=== PATIENT | male | born 1955 | race Caucasian/White ===

== ENCOUNTER 2018-12-03 15:45 | Inpatient (IN) | payer OTHER ==
[2018-12-03] MEDS ORDERED: NS 500 ML IV ONE (15:50)
--- NOTE | 2018-12-03 15:50 | EDPHY ---
H & P Time Seen by Provider: 12/03/18 15:49 HPI/ROS: CHIEF COMPLAINT: Slurred speech, right upper extremity weakness HISTORY OF PRESENT ILLNESS: The patient is a 63-year-old male who stated that he started to feel "funny" at 7:00 a.m.. The at noon he tried to get up and he fell. He noticed right-sided weakness. Patient had difficulty getting to the phone and was not unable to activate EMS until . EMS activated the patient has a stroke alert. The custodial was 119. REVIEW OF SYSTEMS: 10 systems were reveiwed and are negative with the exception of the elements mentioned in the history of present illness. Physical Exam: EMS vitals noted GENERAL: No acute distress, alert. Protecting airway HEENT: Eyes normal to inspection, normal pharynx, no signs of dehydration. NECK: Normal, supple. No spinal tenderness RESPIRATORY: Clear to auscultation bilaterally, no rales, rhonchi or wheezing. CVS: Regular rate and rhythm, no rubs, murmurs, or gallops. ABDOMEN: Soft, nontender, nondistended, no organomegaly. BACK: Normal to inspection, no CVA tenderness. SKIN: Normal color, no rash, warm, dry. No pallor. EXTREMITIES: No pedal edema, no calf tenderness, no Homans sign or cords, no joint swelling. NEURO/PSYCH: Alert and oriented, normal mood and affect, slurred speech, right upper extremity weakness. No obvious cranial nerve deficit. Constitutional: Initial Vital Signs Temperature (C) 36.7 C 12/03/18 16:10 Heart Rate 110 H 12/03/18 16:10 Respiratory Rate 22 H 12/03/18 16:10 Blood Pressure 151/96 H 12/03/18 16:10 O2 Sat (%) 93 12/03/18 16:10 O2 Delivery Mode Nasal Cannula O2 (L/minute) 2 Allergies/Adverse Reactions: Penicillins Allergy (Verified 12/03/18 16:17) Home Medications: Medication Instructions Recorded Metoprolol Tartrate 12/03/18 Medical Decision Making - Diagnostics Imaging Results: Imaging Impressions Chest X-Ray 12/03/18 15:50 Impression: Clear lungs. Negative portable chest. Head CT 12/03/18 15:51 Impression: Negative. No acute intracranial hemorrhage or evidence of acute cortical ischemia. Findings discussed with Emergency Department physician, Dr. Saida Akins on December 03, 2018 at 1610 hours. Head CTA 12/03/18 15:51 Impression: 1. Normal intracranial arterial circulation. No evidence of embolic disease or aneurysm. 2. Patent venous system. CT Neck Angiogram: Neck Angiogram: The cervicothoracic aorta gives rise to normal four-vessel neck anatomy. Origin of the carotid and vertebral arteries are widely patent. Minimal ostial plaque is present at bilateral vertebral artery origins. Calcified plaque in bilateral carotid bulbs results in less than 10% narrowing on the right, and less than 40% narrowing on the left. No ulcerated plaque, flow -limiting stenosis, dissection, or occlusion. Bilateral vertebral arteries are patent and give rise to widely patent basilar artery. Neck: The lung apices are clear, except for mild diffuse peribronchial thickening. No neck mass or lymphadenopathy. Moderate to severe degenerative disk disease is worse at the C4-C5, C5-C6 and C6-C7 levels. No fracture or bone lesion. Impression: 1. No occlusion, dissection, or flow-limiting stenosis. 2. Calcified bilateral carotid plaque results in minimal right and mild left stenosis. Findings discussed with Emergency Department physician, Dr. Saida Akins on December 03, 2018 at 1616 hours. ED Course/Re-evaluation: 1550: I met EMS on arrival. I took report from the nutrition club ambassador. The patient went directly down to CT imaging. Because the patient's symptoms started at 7: 00 a.m., he is in the 12 hr window. Because of the timing, CT without and CT angio head and neck were ordered. CBC and chemistry unremarkable. 16 10: I discussed the case with Dr. Verma. Negative noncontrast head CT 16 17: I discussed case with Dr. Verma. No occluding lesion on CT angio of head and neck. 16 20: I discussed the case with [facility], Dr. Fonseca. We discussed the findings thus far. At this time he is not feel the patient needs transfer. The patient is not a tPA candidate based on the onset of his symptoms at 7:00 a.m.. There is no obstructing lesion on CT angiogram. Differential Diagnosis: My differential includes but is not limited to ischemic CVA, hemorrhagic CVA, dissection, aneurysm, electrolyte abnormality, sugar abnormality, dysrhythmia, ACS - Data Points Laboratory Results: Laboratory Results 12/03/18 15:52 12/03/18 15:52 12/03/18 12/03/18 12/03/18 15:57 15:54 15:52 WBC RBC Hgb POC Hgb 17.0 gm/dL gm/dL (13.7-17.5) Hct POC Hct 50 % % (40-51) MCV MCH MCHC RDW Plt Count MPV Neut % (Auto) Lymph % (Auto) [place] % (Auto) Eos % (Auto) Baso % (Auto) Nucleat RBC Rel Count Absolute Neuts (auto) Absolute Lymphs (auto) Absolute Monos (auto) Absolute Eos (auto) Absolute Basos (auto) Absolute Nucleated RBC Immature Gran % Immature Gran # PT INR APTT POC Sodium 139 mEq/L mEq/L (135-145) Sodium 137 mEq/L mEq/L (135-145) POC Potassium 4.3 mEq/L mEq/L (3.3-5.0) Potassium 4.6 mEq/L mEq/L (3.5-5.2) POC Chloride 101 mEq/L mEq/L (97-110) Chloride 99 mEq/L mEq/L (97-110) Carbon Dioxide 19 mEq/l L mEq/l (22-31) POC Total CO2 22 mEq/L mEq/L (22-31) Anion Gap 19 mEq/L H mEq/L (6-14) POC BUN 23 mg/dL mg/dL (7-23) BUN 22 mg/dL mg/dL (7-23) Creatinine 0.6 mg/dL L mg/dL (0.7-1.3) POC Creatinine 0.6 mg/dL L mg/dL (0.7-1.3) Estimated GFR > 60 Glucose 126 mg/dL H mg/dL (70-100) POC Glucose 131 mg/dL H mg/dL (70-100) Calcium 9.8 mg/dL mg/dL (8.5-10.4) POC Troponin I 0.03 ng/mL ng/mL (0.00-0.08) Specimen Hemolysis Ethyl Alcohol 12/03/18 12/03/18 12/03/18 15:52 15:52 15:50 WBC 7.46 10^3/uL 10^3/uL (3.80-9.50) RBC 5.02 10^6/uL 10^6/uL (4.40-6.38) Hgb 17.0 g/dL g/dL (13.7-17.5) POC Hgb Hct 49.3 % % (40.0-51.0) POC Hct MCV 98.2 fL fL (81.5-99.8) MCH 33.9 pg pg (27.9-34.1) MCHC 34.5 g/dL g/dL (32.4-36.7) RDW 12.6 % % (11.5-15.2) Plt Count 267 10^3/uL 10^3/uL (150-400) MPV 8.6 fL L fL (8.7-11.7) Neut % (Auto) 54.6 % % (39.3-74.2) Lymph % (Auto) 40.3 % % (15.0-45.0) [place] % (Auto) 3.5 % L % (4.5-13.0) Eos % (Auto) 0.7 % % (0.6-7.6) Baso % (Auto) 0.8 % % (0.3-1.7) Nucleat RBC Rel Count 0.0 % % (0.0-0.2) Absolute Neuts (auto) 4.07 10^3/uL 10^3/uL (1.70-6.50) Absolute Lymphs (auto) 3.01 10^3/uL H 10^3/uL (1.00-3.00) Absolute Monos (auto) 0.26 10^3/uL L 10^3/uL (0.30-0.80) Absolute Eos (auto) 0.05 10^3/uL 10^3/uL (0.03-0.40) Absolute Basos (auto) 0.06 10^3/uL 10^3/uL (0.02-0.10) Absolute Nucleated RBC 0.00 10^3/uL 10^3/uL (0-0.01) Immature Gran % 0.1 % % (0.0-1.1) Immature Gran # 0.01 10^3/uL 10^3/uL (0.00-0.10) PT 12.6 SEC SEC (12.0-15.0) INR 0.98 (0.83-1.16) APTT 24.9 SEC SEC (23.0-38.0) POC Sodium Sodium POC Potassium Potassium POC Chloride Chloride Carbon Dioxide POC Total CO2 Anion Gap POC BUN BUN Creatinine POC Creatinine Estimated GFR Glucose POC Glucose Calcium POC Troponin I Specimen Hemolysis 410 Ethyl Alcohol < 10 mg/dL mg/dL (0-10) Medications Given: Discontinued Medications Sodium Chloride (Ns) 500 mls @ 500 mls/hr IV EDNOW ONE PRN Reason: Protocol Stop: 12/03/18 16:49 Last Admin: 12/03/18 16:39 Dose: 500 mls Point of Care Test Results: Chemistry 12/03/18 12/03/18 15:57 15:54 POC Sodium 139 mEq/L mEq/L (135-145) POC Potassium 4.3 mEq/L mEq/L (3.3-5.0) POC Chloride 101 mEq/L mEq/L (97-110) POC Total CO2 22 mEq/L mEq/L (22-31) POC BUN 23 mg/dL mg/dL (7-23) POC Creatinine 0.6 mg/dL L mg/dL (0.7-1.3) POC Glucose 131 mg/dL H mg/dL (70-100) POC Troponin I 0.03 ng/mL ng/mL (0.00-0.08) ISTAT H&H 12/03/18 15:54 POC Hgb 17.0 gm/dL gm/dL (13.7-17.5) POC Hct 50 % % (40-51) Departure - Departure Disposition: [facility] Inpatient Acute Clinical Impression: Aphasic disturbance, Weakness Condition: Good Referrals: Patient,NotPresent [Primary Care Provider] - As per Instructions
[2018-12-03] MEDS ORDERED: IOPAMIDOL (ISOVUE 370) 100 ML BTL IV ONE (15:53)
[2018-12-03 16:05] LABS: PLATELET COUNT 267 10^3/uL (150-400)
[2018-12-03 16:17] LABS: INR 0.98 (0.83-1.16); PROTIME(PATIENT) 12.6 SEC (12.0-15.0)
--- NOTE | 2018-12-03 18:32 | ASMTCMCOM ---
CM Note CM Note Notes: Reviewed chart. Pt presented to the Emergency Department via EMS with aphasia and right sided weakness - stroke alert. History includes Hepatitis C, back injury, HTN and flat foot. Pt is single and lives alone in [place]. Met with pt to assist in locating emergency contacts. Pt requested CM contact Srinivasan Bower, pt's neighbor. Srinivasan located via online white pages. Call placed to Olu Bower , [address] [facility]. Srinivasan was aware the pt had contacted EMS and was transported to [facility]. Srinivasan has been Scot's neighbor for quite some time, but states that "Scot is very reclusive, private and doesn't share much." Srinivasan reports "Scot travels to [place], [place] a couple of times per year," but Srinivasan is unclear what he does when he is there. Srinivasan states that he and his noticed the pt "had increased weakness and difficulty with speech back in July when he returned from a trip to [facility]." Srinivasan and Beatriz will come see the pt tomorrow in the hospital. Update provided to Scot. Scot requested CM contact Saeed Minoo , his friend from [place]. Call placed to Saeed. Saeed reports knowing the pt for many years. Saeed states the pt does not have any living family - the pt's brother in 2012. Saeed reports the pt has Hepatitis C, flat foot secondary to a back injury in the and HTN. Saeed states the pt last visited [place] the end of June, early July 2018. At that time Saeed noted the pt had slurred, slow speech and increased weakness. 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 Saeed will keep in touch with the pt. Main hospital number provided. Update provided to Scot. Pt to be admitted for further evaluation and treatment. Discharge needs remain unclear at this time. Will await PT/OT evals. CM will continue to follow. Discharge Plan: To be determined Date Signed: 12/03/2018 06:32 PM Electronically Signed By:Kaleigh Aguayo RN
[2018-12-03] MEDS ORDERED: ONDANSETRON 4 MG/2 ML VIAL IVP PRN (19:12)
[2018-12-03] MEDS ORDERED: ONDANSETRON DISINTEGRATING 4 MG TAB PO PRN (19:12)
[2018-12-03] MEDS ORDERED: ACETAMINOPHEN 325 MG TAB PO PRN (19:12)
--- NOTE | 2018-12-03 20:16 | GHP ---
[f rep st] HISTORY AND PHYSICAL DATE OF ADMISSION: 12/03/2018 Mr. Hager is a 63-year-old gentleman with not much past medical history and, it sounds like, not a lot of medical care, who was brought into the emergency department as a stroke alert today. He states rebeca yan felt funny around 7 a.m. He tried to get up and he fell. He had some right-sided weakness, and th en it took him a while to get to the phone, and then ultimately he was able to get to the phone aroun d 2 p.m. and came in at that point in time. He had a stroke evaluation showing no intracranial hemor rhage or other significant issue. A noncontrast CT and head and neck CTA showed no significant vascu lar disease. When I speak to the patient he is dysarthric, but his speech is fluent and he is able to repeat objec ts, name a stethoscope, etc. He said his voice has been like that for a number of months. He does n ot drink alcohol. He does not appear intoxicated. He does not have difficulty swallowing. He state s he is retired. He spends much of his time at home. It sounds like his neighbors said that he has been having on-and-off issues with speech since July when they were contacted by some emergency d epartment personnel. The patient has no complaints such as shortness of breath, nausea, vomiting, diarrhea. He has thrush on his tongue. It is unsure how long that has been there. The patient is alert and oriented and conversant. I cannot understand what he used to do for work, b ut he does not appear concerned that he is in the hospital and does not ask any questions. REVIEW OF SYSTEMS: Complete 10-point review of systems is conducted and negative except as noted in the HPI. PAST MEDICAL HISTORY: It sounds like hypertension. ALLERGIES: Penicillin. HOME MEDICATIONS: Metoprolol and enteric-coated aspirin. SOCIAL HISTORY: He is retired. Lives in [address] [place] [address]. Denies tobacco or alcohol. FAMILY HISTORY: Reviewed and unremarkable. PHYSICAL EXAMINATION: PRESENTING VITALS: Temperature 36.7, pulse 110, blood pressure 151/96, breath ing times a minute, 93% on room air. GENERAL: In no acute distress. HEENT: Sclerae ani cteric. Oropharynx clear. Mucous membranes are moist. NECK: Supple without lymphadenopathy or JVD . LUNGS: Clear to auscultation bilaterally. HEART: S1, S2. ABDOMEN: Soft, nontender, nondistend ed. LOWER EXTREMITIES: Without edema. CALVES: Nontender. SKIN: Without rash. NEUROLOGIC: He i s overall weak, but there is no right-sided weakness as described by some people. His speech is dysa rthric but fluent. He has no real tremor that I can tell. He does not have parkinsonian features. LABORATORIES: White count 7.5, hematocrit 49, platelets are 267,000, coags normal. Sodium 137, pota ssium 4.6, chloride 99, bicarb 19, BUN 22, creatinine 0.6, glucose 126. Troponin 0.03, which is nega tive in our system here. Ethanol level is negative. Head and neck CTA shows no significant vascular compromise with intact intracranial circulation and a 40% narrowing in the left carotid bulb. Other tucker really unremarkable with no flow-limiting stenosis anywhere. He has a patent venous system. Non contrast head CT shows no atrophy, no midline shift, etc. Chest x-ray shows clear lungs. Chest x-ra y interpreted by me. EKG interpreted by me shows sinus tach at 109 with normal axis and intervals an d no ST or T-wave changes. I discussed the case with Dr. Saida Akins. ASSESSMENT/PLAN: A 63-year-old gentleman with fall, dysarthria, tachycardia. 1. Dysarthria. This is kind of uncertain as to what is causing this. He does have thrush which I n ote. I will check an MRI to evaluate for old stroke. I will have speech therapy see him. Neck CT d id not show any mass. He had a normal exam. 2. Thrush. Check HIV. Will check a cortisol level. 3. Sinus tachycardia. The patient takes a beta brandi. Perhaps he stopped taking this. Echocardio gram has been ordered. We will repeat a troponin. 4. Encephalopathy. The patient is modestly confused. He has a normal chest x-ray. We will send a urinalysis and urine cultures and check blood cultures. 5. Inferior visual field cut. I will go ahead and check an MRI as mentioned. I will do this with sara briones. 6. Disposition: Inpatient status. /[id number]/MODL
[2018-12-03] MEDS ORDERED: GADOBUTROL 10 ML VIAL IVP ONE (21:14)
--- NOTE | 2018-12-03 23:07 | CPEKG ---
Test Reason : OPEN Blood Pressure : / mmHG Vent. Rate : 109 BPM Atrial Rate : 109 BPM P-R Int : 179 ms QRS Dur : 084 ms QT Int : 367 ms P-R-T Axes : 041 043 042 degrees QTc Int : 495 ms Sinus tachycardia Left atrial enlargement Borderline prolonged QT interval Confirmed by Saida Akins ([id number]) on 12/03/2018 11:06:56 PM Referred By: Saida Akins Confirmed By:Saida Akins
[2018-12-04] MEDS: NS 1,000 ML IV SCH ×2 (00:43→13:14)
[2018-12-04 03:37] LABS: HIV TYPE 1 AND 2 NEGATIVE (NEGATIVE)
--- NOTE | 2018-12-04 07:55 | PDMN ---
Medical Necessity Medical necessity: Pt meets inpt criteria per MD order and Neurology GRG. 63 y/ o s/p fall presented to ED w/dysarthria, confusion, and tachycardia. Neuor consult pending, SP/PT/OT evals and ECHO pending, persistent tachycardia through night, anticipate>2MN for further workup of above.
--- NOTE | 2018-12-04 09:43 | NEUROPROG ---
Assessment: [id number] - Neurology Consult: - CC: Weakness, speech difficulties - HPI: 12/04/18: Pt had been noting speech problems intermittently since July 2018 but otherwise no significant medical problems. On 12/03/18 at 7 am he noted right sided weakness that persisted per patient until 2 pm when he came to the [facility] for evaluation. At that time he was only noted to have dysarthric speech which he indicated has been present since July 2018 and he was mildly confused but not focally weak. Pt also had an oral thrush infection which may be affecting his speech. Head CT, CTA head/neck, and brain MRI wwo all unremarkable. Neurologic exam showed severe dysarthria, mild cognitive problems (thought it was 2018, problems with motor planning), generalized intermittent weakness, and possible right proximal focal weakness. Given length of symptoms of weakness (hours) in setting of normal brain MRI makes TIA or stroke unlikely. 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 Treatment is likely symptomatic. I will check labs for any myasthenia and have pt f/u in neurology clinic in 1-2 weeks to obtain EMG/NCS looking for any denervation in the tongue. Agree with PT/OT/Speech eval. - PMHx: HTN? - Home Meds: aspirin, metoprolol - SHx: retired FHx: NC - ROS: Pt denied acute fever, total vision loss, active severe chest pain, respiratory failure, total body severe rash, total bowel/bladder incontinence, psychosis, active seizures, or active bleeding - O: VS reviewed General: Alert Eyes: Fundoscopic exam not able to visualize optic disks CV: Heart RRR, no murmur, no carotid bruit Lungs: Clear to auscultation bilaterally, no rhonchi or rales Neuro: - Mental: . Oriented x person/place but not date . concentration appears normal . speech fluency/comprehension difficult to test due to severe dysarthria but comprehension seems intact . memory appears normal . fund of knowledge appear intact - Cranial Nerves: . II: PERRL, VFFTC . III/IV/: EOMI, no nystagmus, normal smooth pursuits, no Ptosis . V: facial sensation intact to LT . VII: face symmetric to eye closure and smile . VIII: hearing intact to conversation . IX/X: uvula raises symmetrically . XI: SCM 5/5 B/L strength . XII: tongue protrudes midline w/nl strength - Motor: . Tone: normal tone in all 4 extremity . Strength: proximal right arm weakness, intermittent generalized weakness - Reflexes: B/L bic/BR/patella 2/4 - Sensory: all 4 extremity intact to light touch - Coord: some problems following alternating hand movements seems concerning for motor planning - Gait: deferred - Labs: 12/03/18- CBC wnl, coags wnl, Chem Cr 0.6L Gluc 131H, - Rads: 12/03/18- Head CT wo: no acute bleed (I personally visualized the images on ) 12/03/18- Head/neck CTA: no flow limiting stenosis, no significant findings 12/03/18- Brain MRI wwo: no acute stroke, minimal white matter disease - Assessment: 1. Speech Disturbance, generalized weakness: concern for underlying neurodegenerative process such as bulbar supranuclear palsy - Plan: - Labs: myasthenic panel, TSH, B12 - Agree with PT/OT/Speech - F/U in neurology clinic in 1-2 weeks for EMG/NCS with Dr. Bernal to check for any denervation in tongue Objective: Vital Signs Temp Pulse Resp BP Pulse Ox 36.6 C 103 H 18 148/81 H 96 12/04/18 08:00 12/04/18 08:00 12/04/18 08:00 12/04/18 08:00 12/04/18 08:00 12/03/18 12/04/18 12/05/18 05:59 05:59 05:59 Intake Total 500 Output Total 600 Balance -100 PT 12.6 SEC (12.0-15.0) 12/03/18 15:52 INR 0.98 (0.83-1.16) 12/03/18 15:52 Allergies/Adverse Reactions: Penicillins Allergy (Verified 12/03/18 16:17)
[2018-12-04] MEDS: ENOXAPARIN 40 MG/0.4 ML SYR SC SCH (11:29)
[2018-12-04] MEDS: ASPIRIN EC 81 MG TAB PO SCH (11:30)
[2018-12-04] MEDS: METOPROLOL SUCCINATE XR 50 MG TAB PO SCH (11:31)
--- NOTE | 2018-12-04 16:19 | ECHO ---
[email or web address] [address] [address] Main: [phone] Echocardiography Examination Transthoracic Name: SHERMAN CORNEJO MR#: [id number] Study Date: 12/04/2018 Study Time: 03:31 PM Date of : 1955 Age: 63 year(s) Height: 180.3 cm (71 in.) Weight: 76.66 kg (169 lb.) BSA: 1.96 m2 Gender: Male Examination: Echo Contrast: Image Quality: Adequate Rhythm: Heart Rate: 102 bpm BP: 129 mmHg/70 mmHg Indication: ischemic stroke Procedure Staff Referring Physician: Anesthesiology Faculty: Katie Byers [facility] Reading Physician: Marlon Soria MD Requesting Provider: Indication: ischemic stroke Measurements Chambers AV/MV Label Value Normal Value Label Value Normal Value IVSd, 2D 1.1 cm (0.6cm - 1.1cm) AV PGmax 10 mmHg LVDd, 2D 4.2 cm (4.2cm - 5.9cm) AV Vmax 1.58 m/s LVDs, 2D 2.6 cm (2.1cm - 4cm) JESSICA (continuity eq. 2.2 cm2 LVEF, 2D 66 % (54% - 74%) Vmax) LVEF, BP 70 % (55% - 70%) MV A Vmax 0.96 m/s LVEF, MOD2 71 % (55% - 70%) MV DT 143 ms LVEF, MOD4 67 % (55% - 70%) MV E' lateral 0.08 m/s LVOT PGmax 6 mmHg MV E' mean 0.07 m/s LVOT Vmax 1.22 m/s (0.7m/s - 1.1m/s) MV E' septal 0.06 m/s LVOTd 1.9 cm (1.9cm - 2.1cm) MV E Vmax 0.66 m/s LVPWd, 2D 1.1 cm (0.6cm - 1cm) MV E/A 0.69 RVDd, 2D 3.2 cm (1.9cm - 3.8cm) MV E/E' lateral 8 TAPSE 2.2 cm MV E/E' mean 9.43 LA Area, A2C 10.2 cm2 (0cm2 - 20cm2) MV E/E' septal 11 (0.45 - 1.25) LA Volume, A2C 19 ml (18ml - 58ml) TV/PV LA Volume, A4C 49 ml (16ml - 34ml) Label Value Normal Value LA Volume, BP 33 ml (18ml - 58ml) PV PGmax 5 mmHg LAD Index, 2D 1.63 cm/m2 PV Vmax, Caliper 1.12 m/s (0.6m/s - 0.9m/s) LADs, 2D 3.2 cm (3cm - 4cm) LAESV index, MOD4 25 ml/m2 Patient: SHERMAN CORNEJO Study Date: 12/04/2018 Page 1 of 3 03:31 PM RA Area 13 cm2 Additional Vessels Label Value Normal Value AoAsc 2.9 cm AoRoot, 2D 3.2 cm (1.4cm - 2.6cm) Conclusions Left Ventricle: CONCLUSIONS:1)Normal to hyperdynamic LV systolic function with a LVEF of 70% and normal wall motions.2)Mild concentric LVH with mild diastolic dysfunction noted.3)Trivial TR noted. Unable to assess accurate PA pressures.4)No cardiac thrombus seen.5)No PFO or ASD noted by color Doppler. Findings Left Ventricle: Left ventricle is normal in size. CONCLUSIONS: 1)Normal to hyperdynamic LV systolic function with a LVEF of 70% and normal wall motions. 2)Mild concentric LVH with mild diastolic dysfunction noted. 3)Trivial TR noted. Unable to assess accurate PA pressures. 4)No cardiac thrombus seen. 5)No PFO or ASD noted by color Doppler. The ejection fraction, measured by Simpsons method, is 70 %. There is mild concentric left ventricular hypertrophy. There are no regional wall motion abnormalities. Grade I Diastolic Dysfunction. Right Ventricle: Normal size right ventricle. Right ventricular wall thickness is normal. Right ventricular systolic function is normal. Left Atrium: The left atrium is normal in size. IAS: Normal appearing atrial septum. Right Atrium: The right atrium is normal in size. Mitral Valve: Normal . No mitral regurgitation. No mitral valve stenosis. There is mild mitral annular calcification. Aortic Valve: The aortic valve is structurally normal and trileaflet. No aortic valve regurgitation. There is no aortic stenosis. Tricuspid Valve: Tricuspid valve leaflets are normal in appearance and function. Trivial tricuspid regurgitation. No tricuspid valve stenosis. Pulmonary artery pressure cannot be assessed due to inadequate TR signal. Pulmonic Valve: Pulmonic leaflets exhibit normal cuspal separation. Trivial pulmonic valve regurgitation is present. Aorta: The aorta is normal. The aortic root size in 2D measures 3.2 cm. The aortic root exhibits normal size. The ascending aorta measures 2.9 cm. Ascending aorta is normal in size. Aorta Measurements AoRoot, 2D is 3.2 cm. IVC: The inferior vena cava is normal in size and course. Pericardium: A pericardial fat pad is present. A trivial pericardial effusion was identified. Exam Details Patient: SHERMAN CORNEJO Study Date: 12/04/2018 Page 2 of 3 03:31 PM Procedure Ordered: Echo Procedure Status: Routine study Image Quality: Adequate Facility Location: Cardiac Echo 1 (No Signature Object) Patient: SHERMAN CORNEJO Study Date: 12/04/2018 Page 3 of 3 03:31 PM [id number]
--- NOTE | 2018-12-04 16:50 | HOSPPROG ---
Hospitalist Progress Note Assessment/Plan: 63 yo M w dysphagia, thrush, generalized weakness and possible visual field cut. 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 mri largely neg. seen by neuro Objective: Vital Signs Temp Pulse Resp BP Pulse Ox 36.6 C 92 18 129/70 H 95 12/04/18 11:24 12/04/18 16:00 12/04/18 11:24 12/04/18 11:24 12/04/18 11:24 12/03/18 12/04/18 12/05/18 05:59 05:59 05:59 Intake Total 500 Output Total 600 Balance -100 PT 12.6 SEC (12.0-15.0) 12/03/18 15:52 INR 0.98 (0.83-1.16) 12/03/18 15:52 - Physical Exam Constitutional: no apparent distress, appears nourished Eyes: PERRL, anicteric sclera Ears, Nose, Mouth, Throat: other (thrush) Cardiovascular: regular rate and rhythym, no murmur, rub, or gallop Respiratory: no respiratory distress, no rales or rhonchi Gastrointestinal: normoactive bowel sounds, soft, non-tender abdomen Genitourinary: No parker in urethra Skin: warm, normal color Musculoskeletal: No full muscle strength Neurologic: AAOx3, other Psychiatric: interacting appropriately ICD10 Worksheet Patient Problems: Problems Problem Status Onset Aphasic disturbance Acute Weakness Acute
[2018-12-04] MEDS ORDERED: predniSONE 20 MG TAB PO SCH (17:00)
[2018-12-04] MEDS: methylPREDNISolone SOD SUCC 125 MG/2 ML VIAL IVP SCH (18:06)
[2018-12-04] MEDS: NYSTATIN SUSP 500000 UNIT/5 ML UD LIQ PO SCH (22:57)
[2018-12-05] MEDS: NS 1,000 ML IV SCH (01:40)
[2018-12-05] MEDS: NYSTATIN SUSP 500000 UNIT/5 ML UD LIQ PO SCH ×4 (05:00→20:48)
--- NOTE | 2018-12-05 09:18 | NEUROPROG ---
Assessment: [id number] - Neurology Consult: - CC: F/U for dysarthria - Narrative Summary: 12/04/18: Pt had been noting speech problems intermittently since July 2018 but otherwise no significant medical problems. On 12/03/18 at 7 am he noted right sided weakness that persisted per patient until 2 pm when he came to the [facility] ER for evaluation. At that time he was only noted to have dysarthric speech which he indicated has been present since July 2018 and he was mildly confused but not focally weak. Pt also had an oral thrush infection which may be affecting his speech. Head CT, CTA head/neck, and brain MRI wwo all unremarkable. Neurologic exam showed severe dysarthria, mild cognitive problems (thought it was 2018, problems with motor planning), generalized intermittent weakness, and possible right proximal focal weakness. Given length of symptoms of weakness (hours) in setting of normal brain MRI makes TIA or stroke unlikely. 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 Treatment is likely symptomatic. I will check labs for any myasthenia and have pt f/u in neurology clinic in 1-2 weeks to obtain EMG/NCS looking for any denervation in the tongue. Agree with PT/OT/Speech eval. - HPI: F/U 12/05/18. Given how severely affected the patient is I feel it is reasonable to give a 7 day trial of prednisone 80 mg qd to see if this improves his symptoms (possibly atypical myasthenia gravis?). However, if no clear improvement after 7 days then I will stop prednisone. No clinical change in patient today. B12/TSH unremarkable. - PMHx: HTN? - Home Meds: aspirin, metoprolol - SHx: retired FHx: NC - ROS: Pt denied acute fever, total vision loss, active severe chest pain, respiratory failure, total body severe rash, total bowel/bladder incontinence, psychosis, active seizures, or active bleeding - Labs: 12/03/18- CBC wnl, coags wnl, Chem Cr 0.6L Gluc 131H, HIV 1 /2 negative 12/04/18- TSH wnl, B12 438 - Rads: 12/03/18- Head CT wo: no acute bleed 12/03/18- Head/neck CTA: no flow limiting stenosis, no significant findings 12/03/18- Brain MRI wwo: no acute stroke, minimal white matter disease - Assessment: 1. Speech Disturbance, generalized weakness: concern for underlying neurodegenerative process such as progressive bulbar supranuclear palsy. Will give empiric trial of prednisone 80 mg qd x 7 days (began on 12/04/18) - Plan: - Labs: myasthenic panel (pending) - empiric trial of prednisone 80 mg qd x 7 days (began on 12/04/18), if no clear improvement in 7 days then would stop steroids - Agree with PT/OT/Speech - F/U in neurology clinic in 1-2 weeks for EMG/NCS with Dr. Bernal to check for any denervation in tongue Objective: Vital Signs Temp Pulse Resp BP Pulse Ox 36.8 C 105 H 20 153/91 H 93 12/05/18 08:00 12/05/18 08:00 12/05/18 08:00 12/05/18 08:00 12/05/18 08:00 12/04/18 12/05/18 12/06/18 05:59 05:59 05:59 Intake Total 500 900 100 Output Total 600 900 275 Balance -100 0 -175 PT 12.6 SEC (12.0-15.0) 12/03/18 15:52 INR 0.98 (0.83-1.16) 12/03/18 15:52 Allergies/Adverse Reactions: Penicillins Allergy (Verified 12/03/18 16:17)
[2018-12-05] MEDS: METOPROLOL SUCCINATE XR 50 MG TAB PO SCH (09:34)
[2018-12-05] MEDS: ASPIRIN EC 81 MG TAB PO SCH (09:34)
[2018-12-05] MEDS: methylPREDNISolone SOD SUCC 125 MG/2 ML VIAL IVP SCH (09:35)
[2018-12-05] MEDS: ENOXAPARIN 40 MG/0.4 ML SYR SC SCH (09:35)
[2018-12-05] MEDS ORDERED: GADOBUTROL 10 ML VIAL IVP ONE ×2 (13:21→13:48)
--- NOTE | 2018-12-05 13:41 | HOSPPROG ---
Hospitalist Progress Note Assessment/Plan: 63 yo M w dysphagia, thrush, generalized weakness and possible visual field cut. 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 no change w addition of steroids Objective: Vital Signs Temp Pulse Resp BP Pulse Ox 36.8 C 87 21 H 162/93 H 92 12/05/18 11:43 12/05/18 11:43 12/05/18 11:43 12/05/18 11:43 12/05/18 11:43 12/04/18 12/05/18 12/06/18 05:59 05:59 05:59 Intake Total 500 900 100 Output Total 600 900 525 Balance -100 0 -425 PT 12.6 SEC (12.0-15.0) 12/03/18 15:52 INR 0.98 (0.83-1.16) 12/03/18 15:52 - Physical Exam Constitutional: no apparent distress, appears nourished Eyes: PERRL, anicteric sclera Ears, Nose, Mouth, Throat: moist mucous membranes, hearing normal Cardiovascular: regular rate and rhythym, no murmur, rub, or gallop Respiratory: no respiratory distress, no rales or rhonchi Gastrointestinal: normoactive bowel sounds, soft, non-tender abdomen Genitourinary: no bladder fullness, No parker in urethra Skin: warm, no induration Musculoskeletal: No full muscle strength Neurologic: No AAOx3 ICD10 Worksheet Patient Problems: Problems Problem Status Onset Aphasic disturbance Acute Weakness Acute
[2018-12-06] MEDS: NYSTATIN SUSP 500000 UNIT/5 ML UD LIQ PO SCH ×2 (05:44→12:22)
[2018-12-06] MEDS: METOPROLOL SUCCINATE XR 50 MG TAB PO SCH (08:42)
[2018-12-06] MEDS: ASPIRIN EC 81 MG TAB PO SCH (08:43)
[2018-12-06] MEDS: methylPREDNISolone SOD SUCC 125 MG/2 ML VIAL IVP SCH (08:44)
[2018-12-06] MEDS: ENOXAPARIN 40 MG/0.4 ML SYR SC SCH (08:44)
--- NOTE | 2018-12-06 09:55 | NEUROPROG ---
Assessment: [id number] - Neurology Consult: - CC: F/U for probable motor neuron disease - Narrative Summary: 12/04/18: Pt had been noting speech problems intermittently since July 2018 but otherwise no significant medical problems. On 12/03/18 at 7 am he noted right sided weakness that persisted per patient until 2 pm when he came to the [facility] ER for evaluation. At that time he was only noted to have dysarthric speech which he indicated has been present since July 2018 and he was mildly confused but not focally weak. Head CT, CTA head/neck, and brain MRI wwo all unremarkable. Neurologic exam showed severe dysarthria, mild cognitive problems (thought it was 2018, problems with motor planning), generalized intermittent weakness, and possible right proximal focal weakness. Given length of symptoms of weakness (hours) in setting of normal brain MRI makes TIA or stroke unlikely. Pt seems to most likely have a neurodegenerative process such as a motor neuron disease affecting bulbar muscles. Treatment is likely symptomatic. I will check labs for any myasthenia and have pt f/u in neurology clinic in 1-2 weeks to obtain EMG/NCS looking for any denervation in the tongue with Dr. Landon Bernal (Neuromuscular expert). - F/U 12/05/18. Given how severely affected the patient is I feel it is reasonable to give a 7 day trial of prednisone 80 mg qd to see if this improves his symptoms (possibly atypical myasthenia gravis?). However, if no clear improvement after 7 days then I will stop prednisone. No clinical change in patient today. B12/TSH unremarkable. - HPI: F/U 12/06/18. No improvement of dysarthria on steroids. Pt had cervical MRI showing mild to mod degen changes but no clear explanation for his severe dysarthria. No new events. Pt sitting up in chair. - PMHx: HTN? - SHx: retired FHx: NC - ROS: Pt denied acute fever, total vision loss, active severe chest pain, respiratory failure, total body severe rash, total bowel/bladder incontinence, psychosis, active seizures, or active bleeding - Labs: 12/03/18- CBC wnl, coags wnl, Chem Cr 0.6L Gluc 131H, HIV 1 /2 negative 12/04/18- TSH wnl, B12 438 - Rads: 12/03/18- Head CT wo: no acute bleed 12/03/18- Head/neck CTA: no flow limiting stenosis, no significant findings 12/03/18- Brain MRI wwo: no acute stroke, minimal white matter disease 12/05/18- Cervical MRI wwo: Moderate to severe degenerative disk disease from C4- 5 through C6-C7 with dorsal disk/osteophyte complexes, bilateral uncovertebral osteophytes and bilateral facet arthropathy resulting in mild to moderate central canal stenosis, worst at C4-C5 and C6-C7, and moderate to severe bilateral neural foraminal stenosis. Mild cord compression without cord edema or myelomalacia. No enhancing lesions. - Assessment: 1. 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 Will give empiric trial of prednisone 80 mg qd x 7 days ( began on 12/04/18) - 2. Cervical MRI wwo on 12/05/18 showing moderate to severe degen changes: Not likely the cause of his severe dysarthria. I do not suspect this is a symptomatic finding but I will re-consider if he develops neck pain or any new symptoms suggesting cord compression (increased tone, change in bowel/bladder habits, numbness in arms/legs) - Plan: - Labs: myasthenic panel (pending) - empiric trial of prednisone 80 mg qd x 7 days (began on 12/04/18), if no clear improvement in 7 days then would stop steroids - Agree with PT/OT/Speech - F/U in neurology clinic in 1-2 weeks for EMG/NCS with Dr. Bernal to check for any denervation in tongue Objective: Vital Signs Temp Pulse Resp BP Pulse Ox 36.9 C 115 H 19 160/97 H 92 12/06/18 08:00 12/06/18 08:42 12/06/18 08:00 12/06/18 08:42 12/06/18 08:00 12/05/18 12/06/18 12/07/18 05:59 05:59 05:59 Intake Total 900 250 Output Total 900 1300 180 Balance 0 -1050 -180 PT 12.6 SEC (12.0-15.0) 12/03/18 15:52 INR 0.98 (0.83-1.16) 12/03/18 15:52 Allergies/Adverse Reactions: Penicillins Allergy (Verified 12/03/18 16:17)
--- NOTE | 2018-12-06 14:59 | HOSPPROG ---
Hospitalist Progress Note Assessment/Plan: 63 yo M w dysphagia, thrush, generalized weakness and possible visual field cut. 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 speech unchanged Objective: Vital Signs Temp Pulse Resp BP Pulse Ox 36.9 C 115 H 19 152/80 H 92 12/06/18 08:00 12/06/18 08:42 12/06/18 08:00 12/06/18 13:30 12/06/18 08:00 12/05/18 12/06/18 12/07/18 05:59 05:59 05:59 Intake Total 900 250 Output Total 900 1300 180 Balance 0 -1050 -180 PT 12.6 SEC (12.0-15.0) 12/03/18 15:52 INR 0.98 (0.83-1.16) 12/03/18 15:52 - Physical Exam Constitutional: no apparent distress, appears nourished Eyes: PERRL, anicteric sclera Ears, Nose, Mouth, Throat: other (dysarthric. thrush resolved) Cardiovascular: regular rate and rhythym, no murmur, rub, or gallop Respiratory: no respiratory distress, no rales or rhonchi Gastrointestinal: normoactive bowel sounds, soft, non-tender abdomen Genitourinary: no bladder fullness, No parker in urethra Skin: warm Musculoskeletal: no muscle tenderness, No full muscle strength Neurologic: AAOx3 ICD10 Worksheet Patient Problems: Problems Problem Status Onset Aphasic disturbance Acute Weakness Acute
--- NOTE | 2018-12-06 16:23 | ASMTCMCOM ---
CM Note CM Note Notes: Pts case discussed w/ Dr. Farrell. Therapies all continue to recommend inpatient rehab. CM spoke to Aparnafloyd Ghoshlie about this pt and she reports that they will most likely not be able to take him. CM met w/ pt. Pt is agreeable to going to SNF. CM provided him w/ senior blue book. Pt chose [facility] because he wanted to stay in [place]. Referral sent and non triggering pasrr completed. CM to follow. Plan: Inpatient rehab vs SNF/[facility] Date Signed: 12/06/2018 04:22 PM Electronically Signed By:LATOYA Grullon
--- NOTE | 2018-12-06 17:06 | GCON ---
[f rep st] CONSULTATION NEUROSURGICAL CONSULTATION DATE OF CONSULTATION: 12/06/2018 REASON FOR CONSULTATION: Weakness. HISTORY OF PRESENT ILLNESS: The patient is a 63-year-old gentleman who was admitted on 12/03/2018, through the emergency department as a stroke alert. Apparently, the patient was having some difficulty with his speech and right- sided weakness that prompted him to come to the emergency room. He underwent imaging of the head and neck, which did not show any intracranial hemorrhage or other significant issues. The patient was subsequently seen by Neurology and started on prednisone for his dysarthria and weakness, and has not improved significantly. A neurosurgical consult was requested after a cervical MRI was performed demonstrating cervical degenerative disk disease with bilateral foraminal stenosis [id number] from C5 through C7. My conversation today with the patient was somewhat limited due to the patient' s dysarthria; however, the patient reports that he has been gradually noticing upper and lower extremity weakness over the past 6 months since June of last year. Approximately 2 weeks ago, he was unable to walk. He states that he has not had any bowel or bladder changes. His speech issues started 3 days ago. The patient was diagnosed with oral thrush, which has been treated, but does not seem to be affecting his overall speech ability. The patient denies any neck pain or back pain. He has not experienced any tingling. PAST MEDICAL HISTORY: Hypertension. SOCIAL HISTORY: The patient is retired. He lives alone. He does not use tobacco or alcohol. FAMILY HISTORY: The patient was unable to recall the cause of of his mother or father. ALLERGIES: Penicillin. PHYSICAL EXAM: GENERAL: Tired appearing 63-year-old male in no apparent distress. HEAD, EARS, NOSE, THROAT: The patient has a rousseau tongue and has recently been treated for thrush. HEAD: Normocephalic, atraumatic. EXTREMITIES: Within normal limits, with the exception of notable muscle atrophy of the bilateral web spaces of both hands. NEUROLOGIC: Patient is awake, alert, and oriented x4. He is able to follow commands. He has dysarthric speech. He has no facial droop. He has normal sensation in the V1, V2, V3 distributions bilaterally. He is hyporeflexic in bilateral biceps and brachioradialis with negative Skaggs's. He has 2+ out of 4 bilateral patellar tendon reflexes with no clonus. He has generalized weakness of the bilateral upper and lower extremities with 2/4 strength in the right biceps and triceps and 2/4 strength in bilateral fish drier and wrist flexors and wrist extensors. He has 4/5 strength in bilateral deltoids, 5/5 strength in bilateral shoulder shrugs. He has 3/4 strength in right dorsiflexor and plantar flexor, 4/5 in left dorsiflexor, and 3/5 in left plantar flexor. He has 5/5 strength in bilateral iliopsoas, 4/5 in bilateral quads and hamstrings. IMAGING: Tthe MRI of the cervical spine from 12/05/2018, shows moderate-to- severe degenerative disk disease from C4-5 through C6-7 with dorsal disk osteophyte complexes and bilateral facet arthropathy contributing to mild-to- moderate central canal stenosis, worse at C4-5 and C6-7, and [id number] severe bilateral foraminal stenosis at C4-5 and C6-7. There is no abnormal cord signal. IMPRESSION: This is a 63-year-old gentleman who reports progressively worsening upper and lower extremity weakness for the past 6 months with inability to walk starting approximately 2 weeks ago and recent onset of dysarthric speech. These global symptoms are not explained by his cervical spine findings and we would favor a neurodegenerative process instead. Neurology is also following this patient and there are labs pending for myasthenia gravis. Blood cultures from the have no growth to date. At this time, no neurosurgical intervention would be recommended and we would defer further treatment to Neurology. This information was discussed with Dr. Arturo Davila today. Patient was seen by Neurosurgery staff at approx 5pm on 12/06. The cervical spine findings do not explain the diffuse weakness and no treatment is needed currently for the cervical findings. We continue to defer to our colleagues in Neurology. Please feel free to call us with questions. /[id number]/MODL MTDD
--- NOTE | 2018-12-07 07:38 | NEUSURGPN ---
Assessment/Plan: 63y/o male with diffuse weakness, worse in BUE and RLE with C5-7 degenerative changes -Discussed with patient that his cervical spine MRI findings do not explain his weakness and we would not recommend surgery at this time for this -Continue PT/OT -Will s/o off at this time as no acute neurosurgical intervention -Discussed with Dr Davila -Please notify NS with any change in neuro/motor exam Subjective: BUE weakness the same as yesterday. Not complain of new pain down BUE Objective: NAD A&Ox3 BUE diffusely 4-/5 throughout,except deltoids 3/5 bilaterally RLE DF/EHL 2/5, 5-/5 throughout otherwise - Physician Discussed Patient with : [facility] Neurosurgery Physical Exam - Vitals, I&O, Labs I and O 12/06/18 12/07/18 12/08/18 05:59 05:59 05:59 Intake Total 250 600 Output Total 1300 980 Balance -1050 -380 Intake: Oral (ml) 250 600 Output: Urine (ml) 1300 980 Urinal 1300 980 Other: Intake Quantity Yes Sufficient Number of Voids Incontinence 1 Urinal 1 1 Number of Stools Toilet 1 1 Vital Signs Temp Pulse Resp BP Pulse Ox 36.7 C 99 16 164/94 H 93 12/07/18 07:24 12/07/18 07:24 12/07/18 07:24 12/07/18 07:24 12/07/18 07:24 ICD10 Worksheet Patient Problems: Problems Problem Status Onset Aphasic disturbance Acute Weakness Acute
[2018-12-07] MEDS: ASPIRIN EC 81 MG TAB PO SCH (08:46)
[2018-12-07] MEDS: ENOXAPARIN 40 MG/0.4 ML SYR SC SCH (08:48)
[2018-12-07] MEDS: METOPROLOL SUCCINATE XR 50 MG TAB PO SCH (08:48)
[2018-12-07] MEDS: methylPREDNISolone SOD SUCC 125 MG/2 ML VIAL IVP SCH (08:49)
--- NOTE | 2018-12-07 09:34 | NEUROPROG ---
Assessment: [id number] - Neurology Consult: - CC: F/U for probable motor neuron disease - Narrative Summary: 12/04/18: Pt had been noting speech problems intermittently since July 2018 but otherwise no significant medical problems. On 12/03/18 at 7 am he noted right sided weakness that persisted per patient until 2 pm when he came to the [facility] ER for evaluation. At that time he was only noted to have dysarthric speech which he indicated has been present since July 2018 and he was mildly confused but not focally weak. Head CT, CTA head/neck, and brain MRI wwo all unremarkable. Neurologic exam showed severe dysarthria, mild cognitive problems (thought it was 2018, problems with motor planning), generalized intermittent weakness, and possible right proximal focal weakness. Given length of symptoms of weakness (hours) in setting of normal brain MRI makes TIA or stroke unlikely. Pt seems to most likely have a neurodegenerative process such as a motor neuron disease affecting bulbar muscles. Treatment is likely symptomatic. I will check labs for any myasthenia and have pt f/u in neurology clinic in 1-2 weeks to obtain EMG/NCS looking for any denervation in the tongue with Dr. Landon Bernal (Neuromuscular expert). - F/U 12/05/18. Given how severely affected the patient is I feel it is reasonable to give a 7 day trial of prednisone 80 mg qd to see if this improves his symptoms (possibly atypical myasthenia gravis?). However, if no clear improvement after 7 days then I will stop prednisone. No clinical change in patient today. B12/TSH unremarkable. - F/U 12/06/18. No improvement of dysarthria on steroids. Pt had cervical MRI showing mild to mod degen changes but no clear explanation for his severe dysarthria. No new events. Pt sitting up in chair. - HPI: F/U 12/07/18. Still no improvement on steroids. Neurosurgery did not feel his cervical degen disease required any surgical intervention at this time. No new events. Pt denied new complaints. - PMHx: HTN? - SHx: retired FHx: NC - ROS: Pt denied acute fever, total vision loss, active severe chest pain, respiratory failure, total body severe rash, total bowel/bladder incontinence, psychosis, active seizures, or active bleeding - Labs: 12/03/18- CBC wnl, coags wnl, Chem Cr 0.6L Gluc 131H, HIV 1 /2 negative 12/04/18- TSH wnl, B12 438 - Rads: 12/03/18- Head CT wo: no acute bleed 12/03/18- Head/neck CTA: no flow limiting stenosis, no significant findings 12/03/18- Brain MRI wwo: no acute stroke, minimal white matter disease 12/05/18- Cervical MRI wwo: Moderate to severe degenerative disk disease from C4- 5 through C6-C7 with dorsal disk/osteophyte complexes, bilateral uncovertebral osteophytes and bilateral facet arthropathy resulting in mild to moderate central canal stenosis, worst at C4-C5 and C6-C7, and moderate to severe bilateral neural foraminal stenosis. Mild cord compression without cord edema or myelomalacia. No enhancing lesions. - Assessment: 1. 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 Will give empiric trial of prednisone 80 mg qd x 7 days ( began on 12/04/18) - 2. Cervical MRI wwo on 12/05/18 showing moderate to severe degen changes: Not likely the cause of his severe dysarthria. I do not suspect this is a symptomatic finding but I will re-consider if he develops neck pain or any new symptoms suggesting cord compression (increased tone, change in bowel/bladder habits, numbness in arms/legs). Neurosurgery saw on 12/07/18 and did not recommend surgery. - Plan: - Labs: myasthenic panel (pending) - empiric trial of prednisone 80 mg qd x 7 days (began on 12/04/18), if no clear improvement in 7 days then would stop steroids - Agree with PT/OT/Speech - F/U in neurology clinic in 1-2 weeks for EMG/NCS with Dr. Bernal to check for any denervation in tongue Objective: Vital Signs Temp Pulse Resp BP Pulse Ox 36.7 C 97 16 163/92 H 93 12/07/18 07:24 12/07/18 08:48 12/07/18 07:24 12/07/18 08:48 12/07/18 07:24 12/06/18 12/07/18 12/08/18 05:59 05:59 05:59 Intake Total 250 600 Output Total 1300 980 Balance -1050 -380 PT 12.6 SEC (12.0-15.0) 12/03/18 15:52 INR 0.98 (0.83-1.16) 12/03/18 15:52 Allergies/Adverse Reactions: Penicillins Allergy (Verified 12/03/18 16:17)
--- NOTE | 2018-12-07 16:11 | HOSPPROG ---
Hospitalist Progress Note Assessment/Plan: 63 yo M w dysphagia, thrush, generalized weakness and possible visual field cut. 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 proph :lmwh ?stroke: no weakness: c spine mri w no cause dispo: inpt will need inpt rehab Subjective: more alert, stronger, sitting up in chair Objective: Vital Signs Temp Pulse Resp BP Pulse Ox 36.9 C 87 11 L 144/97 H 92 12/07/18 15:28 12/07/18 15:28 12/07/18 15:28 12/07/18 15:28 12/07/18 15:28 12/06/18 12/07/18 12/08/18 05:59 05:59 05:59 Intake Total 250 600 240 Output Total 1300 980 225 Balance -1050 -380 15 PT 12.6 SEC (12.0-15.0) 12/03/18 15:52 INR 0.98 (0.83-1.16) 12/03/18 15:52 - Physical Exam Constitutional: no apparent distress, appears nourished Eyes: PERRL, anicteric sclera Ears, Nose, Mouth, Throat: moist mucous membranes, hearing normal Cardiovascular: regular rate and rhythym, no murmur, rub, or gallop Respiratory: no respiratory distress, no rales or rhonchi Gastrointestinal: normoactive bowel sounds, soft, non-tender abdomen Genitourinary: no bladder fullness, No parker in urethra Skin: warm, normal color Musculoskeletal: no muscle tenderness Neurologic: other (dystarthric) ICD10 Worksheet Patient Problems: Problems Problem Status Onset Aphasic disturbance Acute Weakness Acute
[2018-12-08] MEDS: methylPREDNISolone SOD SUCC 125 MG/2 ML VIAL IVP SCH (09:51)
[2018-12-08] MEDS: METOPROLOL SUCCINATE XR 50 MG TAB PO SCH (09:52)
[2018-12-08] MEDS: ENOXAPARIN 40 MG/0.4 ML SYR SC SCH (09:52)
[2018-12-08] MEDS: ASPIRIN EC 81 MG TAB PO SCH (09:53)
--- NOTE | 2018-12-08 11:16 | NEUROPROG ---
Assessment: [id number] - Neurology Consult: - CC: F/U for probable motor neuron disease - Narrative Summary: 12/04/18: Pt had been noting speech problems intermittently since July 2018 but otherwise no significant medical problems. On 12/03/18 at 7 am he noted right sided weakness that persisted per patient until 2 pm when he came to the [facility] ER for evaluation. At that time he was only noted to have dysarthric speech which he indicated has been present since July 2018 and he was mildly confused but not focally weak. Head CT, CTA head/neck, and brain MRI wwo all unremarkable. Neurologic exam showed severe dysarthria, mild cognitive problems (thought it was 2018, problems with motor planning), generalized intermittent weakness, and possible right proximal focal weakness. Given length of symptoms of weakness (hours) in setting of normal brain MRI makes TIA or stroke unlikely. Pt seems to most likely have a neurodegenerative process such as a motor neuron disease affecting bulbar muscles. Treatment is likely symptomatic. I will check labs for any myasthenia and have pt f/u in neurology clinic in 1-2 weeks to obtain EMG/NCS looking for any denervation in the tongue with Dr. Landon Bernal (Neuromuscular expert). - F/U 12/05/18. Given how severely affected the patient is I feel it is reasonable to give a 7 day trial of prednisone 80 mg qd to see if this improves his symptoms (possibly atypical myasthenia gravis?). However, if no clear improvement after 7 days then I will stop prednisone. No clinical change in patient today. B12/TSH unremarkable. - F/U 12/06/18. No improvement of dysarthria on steroids. Pt had cervical MRI showing mild to mod degen changes but no clear explanation for his severe dysarthria. No new events. Pt sitting up in chair. - F/U 12/07/18. Still no improvement on steroids. Neurosurgery did not feel his cervical degen disease required any surgical intervention at this time. No new events. Pt denied new complaints. - HPI: F/U 12/08/18. Still no improvement on steroids. If no dramatic improvement after completing 7 days of steroids then I would discontinue. No new events. No further neurologic w/u needed so neurology will sign off. He should call our clinic at hospital discharge to set up an EMG/NCS with Dr. Bernal as the next step in his evaluation process. - PMHx: HTN? - SHx: retired FHx: NC - ROS: Pt denied acute fever, total vision loss, active severe chest pain, respiratory failure, total body severe rash, total bowel/bladder incontinence, psychosis, active seizures, or active bleeding - Labs: 12/03/18- CBC wnl, coags wnl, Chem Cr 0.6L Gluc 131H, HIV 1 /2 negative 12/04/18- TSH wnl, B12 438 - Rads: 12/03/18- Head CT wo: no acute bleed 12/03/18- Head/neck CTA: no flow limiting stenosis, no significant findings 12/03/18- Brain MRI wwo: no acute stroke, minimal white matter disease 12/05/18- Cervical MRI wwo: Moderate to severe degenerative disk disease from C4- 5 through C6-C7 with dorsal disk/osteophyte complexes, bilateral uncovertebral osteophytes and bilateral facet arthropathy resulting in mild to moderate central canal stenosis, worst at C4-C5 and C6-C7, and moderate to severe bilateral neural foraminal stenosis. Mild cord compression without cord edema or myelomalacia. No enhancing lesions. - Assessment: 1. 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 Will give empiric trial of prednisone 80 mg qd x 7 days ( began on 12/04/18) - 2. Cervical MRI wwo on 12/05/18 showing moderate to severe degen changes: Not likely the cause of his severe dysarthria. I do not suspect this is a symptomatic finding but I will re-consider if he develops neck pain or any new symptoms suggesting cord compression (increased tone, change in bowel/bladder habits, numbness in arms/legs). Neurosurgery saw on 12/07/18 and did not recommend surgery. - Plan: - Labs: myasthenic panel (pending) - empiric trial of prednisone 80 mg qd x 7 days (began on 12/04/18), if no clear improvement in 7 days then would stop steroids - Agree with PT/OT/Speech, likely will need terminal gauger care placement - F/U in neurology clinic in 1-2 weeks for EMG/NCS with Dr. Bernal to check for any denervation in tongue - No further neurologic inpt w/u needed, neurology will sign off Objective: Vital Signs Temp Pulse Resp BP Pulse Ox 36.7 C 81 21 H 153/95 H 90 L 12/08/18 11:02 12/08/18 11:02 12/08/18 11:02 12/08/18 11:02 12/08/18 11:02 12/07/18 12/08/18 12/09/18 05:59 05:59 05:59 Intake Total 600 1540 570 Output Total 980 225 250 Balance -380 1315 320 PT 12.6 SEC (12.0-15.0) 12/03/18 15:52 INR 0.98 (0.83-1.16) 12/03/18 15:52 Allergies/Adverse Reactions: Penicillins Allergy (Verified 12/03/18 16:17)
--- NOTE | 2018-12-08 15:25 | HOSPPROG ---
Hospitalist Progress Note Assessment/Plan: 63 yo M w dysphagia, thrush, generalized weakness and possible visual field cut. 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 i believe he will thrive and improve there Subjective: case d/w dr magallon Objective: Vital Signs Temp Pulse Resp BP Pulse Ox 36.7 C 81 21 H 153/95 H 90 L 12/08/18 11:02 12/08/18 11:02 12/08/18 11:02 12/08/18 11:02 12/08/18 11:02 12/07/18 12/08/18 12/09/18 05:59 05:59 05:59 Intake Total 600 1540 1250 Output Total 980 225 600 Balance -380 1315 650 PT 12.6 SEC (12.0-15.0) 12/03/18 15:52 INR 0.98 (0.83-1.16) 12/03/18 15:52 - Physical Exam Constitutional: no apparent distress, appears nourished Eyes: PERRL, anicteric sclera Ears, Nose, Mouth, Throat: moist mucous membranes, hearing normal Cardiovascular: regular rate and rhythym, no murmur, rub, or gallop Respiratory: no respiratory distress, no rales or rhonchi Gastrointestinal: normoactive bowel sounds, soft, non-tender abdomen Genitourinary: no bladder fullness, No parker in urethra Skin: warm, normal color 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
--- NOTE | 2018-12-08 15:27 | ASMTCMCOM ---
CM Note CM Note Notes: Pts case discussed w/ Dr. Farrell and Aparna Friedman. Aparna will continue to follow this case to see if pt is appropriate for inpatient rehab. CM met w/ pt for dispo planning. CM told pt that he has been accepted to [facility] and inpatient rehab is still seeing if he qualifies. Pt reports that it is not an option for his friend from [place] to come up to stay w/ him. Pt reports that his neighbor Srinivasan that lives next door is his only support. Pt agreed for CM to call Srinivasan. CM spoke to Srinivasan on the phone and he said that he would be able to check in once in awhile but cannot be there daily nor can he provide / supervision. CM to follow. Plan: TBD Date Signed: 12/08/2018 03:25 PM Electronically Signed By:LATOYA Grullon
[2018-12-09] MEDS: METOPROLOL SUCCINATE XR 50 MG TAB PO SCH (09:18)
[2018-12-09] MEDS: methylPREDNISolone SOD SUCC 125 MG/2 ML VIAL IVP SCH (09:20)
[2018-12-09] MEDS: ASPIRIN EC 81 MG TAB PO SCH (09:27)
[2018-12-09] MEDS: ENOXAPARIN 40 MG/0.4 ML SYR SC SCH (09:27)
--- NOTE | 2018-12-09 16:17 | HOSPPROG ---
Hospitalist Progress Note Assessment/Plan: Subjective Follow-up on dysarthria. No acute events overnight. Patient states that he feels he is getting much better guards to his speech as well as his strength. He demonstrates lifting his arms above the level of the shoulders which he states he could not do when he 1st came in. We reviewed that he is currently on steroids with the running diagnosis of myasthenia gravis versus progressive supranuclear palsy. No complaints of shortness of breath. Objective Vital signs as detailed below Physical exam General-awake alert conversant no acute distress, sitting in chair at the bedside Heart-regular rate and rhythm no murmurs Lungs-Clear to auscultation with normal respiratory effort Abdomen-soft nontender nondistended normal bowel sounds -no Hayes catheter in place Extremities-no significant pitting edema or calf pain with palpation Skin-no concerning skin rashes noted Neuro-patient is a able to articulate but speech is certainly still impacted, he is able to lift his hands above the level of his shoulders which is left arm appears more weak as compared to the right. Labs as detailed below Assessment and plan Myasthenia gravis versus progressive supranuclear palsy-patient appears to be improving. Studies for myasthenia are currently pending and not expected until the week of December. Considering the improvement with steroids I will anticipate continuing. Tomorrow will be day 7 of prednisone at 80 mg daily. Thrush-appears to be resolved. Dysphagia-patient is on nectar liquids. Hypertension-patient was on metoprolol as an outpatient. Uncertain compliance. Blood pressures appear reasonably well controlled. DVT prophylaxis- Disposition-plan will be for [facility] once ready for discharge. Potentially could discharge in the coming days to continue prednisone. Objective: Vital Signs Temp Pulse Resp BP Pulse Ox 36.6 C 69 20 152/98 H 91 L 12/09/18 15:34 12/09/18 15:34 12/09/18 15:34 12/09/18 15:34 12/09/18 15:34 Microbiology 12/03/18 19:53 Blood Culture - Final Blood 12/03/18 20:03 Blood Culture - Final Blood 12/08/18 12/09/18 12/10/18 05:59 05:59 05:59 Intake Total 1540 1750 Output Total 225 1325 250 Balance 1315 425 -250 PT 12.6 SEC (12.0-15.0) 12/03/18 15:52 INR 0.98 (0.83-1.16) 12/03/18 15:52 ICD10 Worksheet Patient Problems: Problems Problem Status Onset Aphasic disturbance Acute Weakness Acute
[2018-12-10] MEDS: METOPROLOL SUCCINATE XR 50 MG TAB PO SCH (10:05)
[2018-12-10] MEDS: ASPIRIN EC 81 MG TAB PO SCH (10:05)
[2018-12-10] MEDS: methylPREDNISolone SOD SUCC 125 MG/2 ML VIAL IVP SCH (10:06)
[2018-12-10] MEDS: ENOXAPARIN 40 MG/0.4 ML SYR SC SCH (10:06)
--- NOTE | 2018-12-10 16:10 | HOSPPROG ---
Hospitalist Progress Note Assessment/Plan: Subjective Follow-up on dysarthria. No acute events overnight. Patient states that his strength seems to be better but no improvement of his dysarthria. Case reviewed with Neurology today. We discussed stopping steroids unless the dysarthria seems to improve. Objective Vital signs as detailed below Physical exam General-awake alert conversant no acute distress, Heart-regular rate and rhythm no murmurs Lungs-Clear to auscultation with normal respiratory effort Abdomen-soft nontender nondistended normal bowel sounds -no Hayes catheter in place Extremities-no significant pitting edema or calf pain with palpation Skin-no concerning skin rashes noted Neuro-patient is a able to articulate but speech is certainly still impacted, he is able to lift his hands above the level of his shoulders which is left arm appears more weak as compared to the right. Labs as detailed below Assessment and plan Myasthenia gravis versus progressive supranuclear palsy-concern also for ALS variant. patient appears to be improving in regards to strength but speech is unchanged. Studies for myasthenia are currently pending and not expected until the week of December. Will plan on stopping steroids likely after tomorrow's dose. Otherwise outpatient consultation with Neurology after discharge. Dysphagia-patient is on nectar liquids. Hypertension-patient was on metoprolol as an outpatient. Uncertain compliance. Blood pressures appear mildly elevated over the past 24 hr. Possibly effect from steroids. Will not make any changes for now as stopping tomorrow. DVT prophylaxis-Lovenox. Disposition-plan will be for [facility] once ready for discharge. Objective: Vital Signs Temp Pulse Resp BP Pulse Ox 36.9 C 63 17 137/80 H 94 12/10/18 15:42 12/10/18 15:42 12/10/18 15:42 12/10/18 15:42 12/10/18 15:42 12/09/18 12/10/18 12/11/18 05:59 05:59 05:59 Intake Total 1750 200 640 Output Total 1325 1050 500 Balance 425 -850 140 PT 12.6 SEC (12.0-15.0) 12/03/18 15:52 INR 0.98 (0.83-1.16) 12/03/18 15:52 ICD10 Worksheet Patient Problems: Problems Problem Status Onset Aphasic disturbance Acute Weakness Acute
[2018-12-11] MEDS ORDERED: MAGNESIUM CITRATE 300 ML BOTTLE PO PRN (09:37)
[2018-12-11] MEDS ORDERED: POLYETHYLENE GLYCOL 3350 17 GM PKT PO SCH (09:45)
[2018-12-11] MEDS: ENOXAPARIN 40 MG/0.4 ML SYR SC SCH (10:16)
[2018-12-11] MEDS: ASPIRIN EC 81 MG TAB PO SCH (10:16)
[2018-12-11] MEDS: METOPROLOL SUCCINATE XR 50 MG TAB PO SCH (10:16)
[2018-12-11 12:43] VITALS: BP 161/93
--- NOTE | 2018-12-11 14:03 | PDIAF ---
- Diagnosis Diagnosis: Dysphagia, dysarthria Code Status: Full Code - Medication Management Discharge Medications: electronically signed and located in the Home Medication List. - Orders Services needed: Physical Therapy, Occupational Therapy, Speech Language Pathologist Diet Recommendation: no restrictions on diet Diet Texture: Dysphagia 1 - Pureed, [place] Thick Liquids - Follow Up Care Current Providers and Referrals: Patient,NotPresent [Unknown] - As per Instructions
--- NOTE | 2018-12-11 15:38 | ASMTLACE ---
LACE Length of stay for Answers: 7-13 days current admission Acuity / Level of Answers: Yes Care: Did the patient have an inpatient admission? Comorbidities - select Answers: Cerebrovascular disease all that apply (CVA, TIA, aneurysms, vasc ular dementia) Other Notes: Aphasia, HTN # of Emergency department Answers: 1-2 visits in the last 6 months Score: 11 Date Signed: 12/11/2018 03:38 PM Electronically Signed By:ANTONI Jacome
--- NOTE | 2018-12-11 15:39 | ASMTCMCOM ---
CM Note CM Note Notes: Pt medically stable for d/c to [facility] inpatient rehab, orders to be obtained via [employer]. Pt agrees to pay for [employer] transport. KAVIN Wilson to call report. Date Signed: 12/11/2018 03:39 PM Electronically Signed By:ANTONI Jacome
--- NOTE | 2018-12-11 15:43 | ASDISCHSUM ---
Discharge Information Plan Status:Inpatient Rehab Medically Cleared to Leave: Discharge Date:12/11/2018 03:34 PM CM D/C Disposition: ADT D/C Disposition:[facility] IP Projected Discharge Date:12/08/2018 11:00 AM Transportation at D/C: Discharge Delay Reason: Follow-Up Date:12/08/2018 11:00 AM Discharge Slot: Final Diagnosis: Placement Information Referral Type:*[facility]/SNF Referral ID:[id number] Provider Name: Address 1: Phone Number: Address 2: Fax Number: City: Selection Factors: State: Referral Type:Rehabilitation Hospital Referral ID:[id number] Provider Name:[facility] Address 1:[address] [place] [address] Phone Number: Address 2: Fax Number: [facility] Selection Factors: State:[place] Patient Contact Information Contact Name:EMILY LEI Relationship:Friend Address:[address] [place] [address] Work Phone: City:[place] Alternate Phone: State/Zip Code:[place] [address] Email: Financial Information Financial Class:Medicare Primary Plan Desc:MEDICARE INPATIENT Primary Plan Number:[id number] Secondary Plan Desc: Secondary Plan Number: Assessment Information LACE LACE Length of stay for Answers: 7-13 days current admission Acuity / Level of Answers: Yes Care: Did the patient have an inpatient admission? Comorbidities - select Answers: Cerebrovascular disease all that apply (CVA, TIA, aneurysms, vasc ular dementia) Other Notes: Aphasia, HTN # of Emergency department Answers: 1-2 visits in the last 6 months Score: 11 Date Signed: 12/11/2018 03:38 PM Electronically Signed By:ANTONI Jacome [facility] CM Progress Note CM Note CM Note Notes: Reviewed chart. Pt presented to the Emergency Department via EMS with aphasia and right sided weakness - stroke alert. History includes Hepatitis C, back injury, HTN and flat foot. Pt is single and lives alone in [place]. Met with pt to assist in locating emergency contacts. Pt requested CM contact Srinivasancarmine Bower, pt's neighbor. Srinivasan located via online white pages. Call placed to Olu Bower , [address] [facility]. Srinivasan was aware the pt had contacted EMS and was transported to [facility]. Srinivasan has been Scot's neighbor for quite some time, but states that "Scot is very reclusive, private and doesn't share much." Srinivasan reports "Scot travels to [place], [place] a couple of times per year," but Srinivasan is unclear what he does when he is there. Srinivasan states that he and his noticed the pt "had increased weakness and difficulty with speech back in July when he returned from a trip to [facility]." Srinivasan and Beatriz will come see the pt tomorrow in the hospital. Update provided to Scot. Scot requested CM contact Saeed Hennessy , his friend from [place]. Call placed to Saeed. Saeed reports knowing the pt for many years. Saeed states the pt does not have any living family - the pt's brother in 2012. Saeed reports the pt has Hepatitis C, flat foot secondary to a back injury in the and HTN. Saeed states the pt last visited [place] the end of June, early July 2018. At that time Saeed noted the pt had slurred, slow speech and increased weakness. 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 Saeed will keep in touch with the pt. Main hospital number provided. Update provided to Scot. Pt to be admitted for further evaluation and treatment. Discharge needs remain unclear at this time. Will await PT/OT evals. CM will continue to follow. Discharge Plan: To be determined Date Signed: 12/03/2018 06:32 PM Electronically Signed By:Kaleigh Aguayo RN [facility] Progress Note CM Note CM Note Notes: Pts case discussed w/ Dr. Farrell. Therapies all continue to recommend inpatient rehab. CM spoke to Aparna Friedman about this pt and she reports that they will most likely not be able to take him. CM met w/ pt. Pt is agreeable to going to SNF. CM provided him w/ senior blue book. Pt chose [facility] because he wanted to stay in [place]. Referral sent and non triggering pasrr completed. CM to follow. Plan: Inpatient rehab vs SNF/[facility] Date Signed: 12/06/2018 04:22 PM Electronically Signed By:LATOYA Grullon [facility] MIKE Progress Note MIKE Note CM Note Notes: Pts case discussed w/ Dr. Farrell and Aparna Friedman. Aparna will continue to follow this case to see if pt is appropriate for inpatient rehab. CM met w/ pt for dispo planning. CM told pt that he has been accepted to [facility] and inpatient rehab is still seeing if he qualifies. Pt reports that it is not an option for his friend from [place] to come up to stay w/ him. Pt reports that his neighbor Srinivasan that lives next door is his only support. Pt agreed for CM to call Srinivasan. CM spoke to Srinivasan on the phone and he said that he would be able to check in once in awhile but cannot be there daily nor can he provide 11/04 supervision. CM to follow. Plan: TBD Date Signed: 12/08/2018 03:25 PM Electronically Signed By:LATOYA Grullon [facility] CM Progress Note CM Note CM Note Notes: Pt medically stable for d/c to [facility] inpatient rehab, orders to be obtained via [employer]. Pt agrees to pay for [employer]. KAVIN Wilson to call report. Date Signed: 12/11/2018 03:39 PM Electronically Signed By:ANTONI Jacome Intervention Information Intervention Type:*Incorrect Registration Date of Service:12/04/2018 08:05 AM Patient Type:Inpatient Staff Member:KAVIN Johnston, Anastasiia Hours: Discipline: Severity: Comment: Intervention Type:*IM-Signed Date of Service:12/11/2018 03:10 PM Patient Type:Inpatient Staff Member:Ellie Santillan Hours: Discipline: Severity: Comment:
--- NOTE | 2018-12-11 16:14 | GDS ---
[f rep st] DISCHARGE SUMMARY PRIMARY CARE PROVIDER: None presently established. 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 HISTORY OF PRESENT ILLNESS: The patient is a pleasant 63-year-old gentleman with a past medical hist ory of hypertension, who presented to [facility] on 12/03/2018, with complaints of sl urred speech and right upper extremity weakness. A stroke workup was initiated, which included a CT scan of the head, which did not show any acute intracranial findings. He, furthermore, had a CT paulina ography of the head and neck, which showed normal intracranial arterial circulation and no occlusion, dissection, or stenosis in the neck. An MRI of the brain was performed, which did not show any acut e ischemia, or intracranial hemorrhage. Considerations were given toward myasthenia gravis, as well as progressive supranuclear palsy. 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 He was started on an empiric course of steroids with Solu-Medrol 80 mg IV daily. However, unfort unately, no improvement with his speech changes occurred and these were ultimately stopped on 019. HOSPITAL COURSE BY PROBLEM: Motor neuron disease, probable: Steroids have been stopped as no positi ve effect on his symptoms of dysarthria. In retrospect, it sounds like these have been chronic cardoso es developing initially in the fall of 2018. Primary concern is for motor neuron disease [facility] for further evaluation. A followup with Dr. Landon Bernal i n 1 to 2 weeks for EMG/NCS is recommended at the time of discharge. Dysphagia: The patient was evaluated by Speech Therapy during this hospitalization and placed on a d ysphagia diet. Constipation: Bowel regimen was put into place today as patient reported his last bowel movement was 3 days prior. He does report that he had a bowel movement today on the day of discharge. Hypertension, uncontrolled: The patient has been on metoprolol with inadequate control. Amlodipine 2.5 mg daily was added during this hospitalization. DVT prophylaxis: The patient was on Lovenox during this hospitalization. DISPOSITION: The patient was accepted to inpatient rehab at [facility] and will transition there today. DISCHARGE PHYSICAL EXAMINATION: VITAL SIGNS: On day of discharge, temperature 37.0, blood pressure 156/90, heart rate 61, respirations 17, satting 95% on 2 L nasal cannula. GENERAL: The patient appe ars comfortable he is awake, alert, interactive, no acute distress. HEART: Regular rate and rhythm. No murmurs. LUNGS: Clear on auscultation with normal respiratory effort. ABDOMEN: Soft, nontend er and nondistended. Normal bowel sounds. : No Hayes catheter in place. EXTREMITIES: No signif icant pitting edema or calf pain with palpation. SKIN: No concerning skin rashes noted. NEURO: Th e patient is able to articulate speech, but is certainly still impacted by his underlying disease pro cess. He is able to lift his hands above the level of the shoulders. No difference in strength note d between the right and left extremities. NOTABLE STUDIES: White blood cell count 7.4, hemoglobin 17, platelets 267. INR 0.98. Sodium 139, p otassium 4.3, chloride 99, bicarb 19, BUN 22, creatinine 0.6, glucose 126. Myasthenia antibody studi es still pending and expected to be back the first week of December. DISCHARGE MEDICATIONS: 1. Acetaminophen 650 mg every 4 hours as needed for pain or fever. 2. Amlodipine 2.5 mg daily. 3. Lovenox 40 mg subcutaneous daily. 4. MiraLAX 17 g daily. 5. Senokot 1 tab nightly. 6. Metoprolol succinate 50 mg daily. 7. Aspirin 81 mg daily. As-needed medications include: 1. Magnesium citrate. 2. Zofran. DISCHARGE INSTRUCTIONS: The patient will transition to inpatient rehab at [facility]. A followup visit with Dr. Landon Bernal is recommended in 1 to 2 weeks' ti me. Forty minutes of time dedicated to discharge efforts. I appreciate case management's assistance with the discharge today. /[id number]/MODL
[2018-12-11] MEDS ORDERED: SENNOSIDES 1 TAB PO SCH (21:00)
== END 2018-12-11 15:34 | DRG 57 ==
LOC: EDSEX 15:45 → F3N 18:22 → OBSVTOIN 19:14
PROVIDERS: ADMIT Internal Medicine; ATTEND Internal Medicine
DX: G12.20 Motor neuron disease, unspecified (principal); R47.1 Dysarthria and anarthria; M62.81 Muscle weakness (generalized); R13.12 Dysphagia, oropharyngeal phase; B37.0 Candidal stomatitis; K59.00 Constipation, unspecified; I10 Essential (primary) hypertension
CPT/HCPCS: 80305; 82435-PO; 82565-PO; 82607-90; 82947-PO; 83520-90; 84132-PO; 84295-PO; 84484-ER; 84520-PO; 85014-ER; 92523-GN; 92526-GN; 92610-GN; 92611-GN; 97110-GP; 97112-GO; 97116-GP; 97162-GP; 97166-GO; 97530-GO; 97530-GP; 97535-GO; A9585; G0480; J1650; J2930; Q9967

== ENCOUNTER 2018-12-11 14:32 | Inpatient (IN) | payer OTHER ==
[2018-12-11] MEDS ORDERED: ACETAMINOPHEN 325 MG TAB PO PRN (16:27)
[2018-12-11] MEDS ORDERED: ONDANSETRON DISINTEGRATING 4 MG TAB PO PRN (16:27)
[2018-12-11] MEDS ORDERED: MAGNESIUM CITRATE 300 ML BOTTLE PO PRN (16:27)
--- NOTE | 2018-12-11 16:52 | PDOREHIP ---
Admission [facility] - Admission - 3 Day Assessment Period Admission Date/Day 1: 12/11/18 Day 2: 12/12/18 Day 3: 12/13/18 - Active Diagnoses Comorbidities and Co-existing Conditions at Admission: 64884. None of the Above - Skin Conditions Unhealed Pressure Ulcer (1 or more/Stage 1 or >)-Admission: 0. No # Stage 1 Pressure Ulcers-Admission: 0 # Stage 2 Pressure Ulcers-Admission: 0 # Stage 3 Pressure Ulcers-Admission: 0 # Stage 4 Pressure Ulcers-Admission: 0 # Unstageable Pressure Ulcers (Non-remove Dress)-Admission: 0 # Unstageable Pressure Ulcers (Slough/Eschar)-Admission: 0 # Unstageable Pressure Ulcers (Deep Tissue Injury)-Admission: 0
--- NOTE | 2018-12-11 17:40 | GHP ---
[f rep st] HISTORY AND PHYSICAL POST ADMISSION PHYSICIAN EVALUATION AND REHABILITATION TREATMENT PLAN DATE OF ADMISSION: 12/11/2018 DATE OF EVALUATION: December 11, 2018. TIME OF EVALUATION: 1615. REFERRING FACILITY: [facility]. REFERRING PHYSICIAN: Dr. Farrell IMPAIRMENT GROUP: 3.9. DATE OF ONSET: 12/03/2018. REFERRING PHYSICIAN: Dr. Farrell CONSULTING PHYSICIANS: Neurology, Dr. Gallegos. Neurosurgery, Dr. Davila. REHABILITATION DIAGNOSIS: Neurodegenerative disorder with dysarthria and dysphagia. ETIOLOGIC DIAGNOSIS: Other neurologic conditions. HISTORY OF PRESENT ILLNESS: This man was admitted to [facility] on 12/03/2018 with dysarthria and tachycardia. He was evaluated for a strok. Head CT and head and neck CT angiogram were negative, and his onset of symptoms was too remote to consider tPA thrombolysis. He subsequently had a brain MRI, which showed minimal nonspecific periventricular and subcortical white matter disease in the frontal and parietal lobes. Neurosurgery senior health consultant advised that his symptoms were not due to cervical spine disease, though brain MRI showed moderate to severe degenerative disk disease from C4-5 through C6-7 with mild to moderate central canal stenosis, worst at C4-5 and C6- 7, and moderate to severe bilateral neural foraminal stenosis. There was mild cord compression without cord edema or myelomalacia. Out of concern for possible myasthenia gravis, he was treated with high-dose IV corticosteroids. He had some improvement, but nothing dramatic, and the plan is for him to follow up with Neurology after his rehabilitation stay for nerve conduction studies. He continued to have significant dysphagia and was maintained on a pureed diet and nectar thick liquids. LABS AND STUDIES DURING HIS STAY: CBC was overall normal on the day of admission. PT and PTT were normal. Serum chemistry showed a significant anion gap of 19 when he presented, but this subsequently normalized. Troponins were negative. Lipid panel was fairly benign with a cholesterol of 184 and an LDL slightly elevated at 109, HDL was 58. TSH was normal. B12 was normal. Fasting cortisol was normal. Urinalysis showed an elevated specific gravity of 1.034 and 2+ ketones, but otherwise was normal. Toxicology screen in the urine was negative for any substances of abuse, and the serum was negative for ethyl alcohol. HIV was negative. Labs regarding myasthenia gravis are still pending. Echocardiogram was done which showed normal to hyperdynamic left ventricular systolic function with an ejection fraction of 70% and normal wall motion, mild concentric LVH with mild diastolic dysfunction, trivial tricuspid regurgitation. No cardiac thrombus and no intracardiac shunt. PRECAUTIONS: He is a fall risk. He has aspiration precautions. ACTIVE COMORBIDITIES: He has the tier 2 comorbidity of dysphagia. He has the tier 3 comorbidity of hemiparesis with right-sided weakness. PAST MEDICAL HISTORY: 1. Lumbar spine degenerative disease. 2. Hypertension. PAST SURGICAL HISTORY: He has had low back surgery in 1988. PRE-HOSPITAL MEDICATIONS: He was taking metoprolol. ADMISSION MEDICATIONS: 1. Acetaminophen 650 mg p.o. q.4 hours p.r.n. 2. Amlodipine 2.5 mg p.o. daily. 3. Aspirin 81 mg p.o. daily. 4. Enoxaparin 40 mg subcutaneous daily. 5. Magnesium citrate 300 mg p.o. daily p.r.n. 6. Metoprolol 50 mg p.o. daily. 7. Ondansetron 4 mg p.o. q.4 hours p.r.n. 8. Polyethylene glycol 17 g p.o. daily. 9. Senna 1 p.o. q.h.s. ALLERGIES: There is an allergy listed to penicillins. PSYCHOSOCIAL HISTORY: He lives alone. 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 He is involved with a nonprofit organization called [employer] which is located in [place]. He is a nonsmoker. FAMILY HISTORY: Noncontributory. REVIEW OF SYSTEMS: He is aware of difficulty swallowing and of some left-sided weakness. He denies vision changes. He denies numbness, tingling, or loss of sensation. He is not in pain. He denies cough, dyspnea, chest pain, or palpitations. He denies nausea, vomiting, constipation, or diarrhea. He denies dysuria or urinary urgency. He is sleeping well. Otherwise, a 10-point review of systems is negative. PHYSICAL EXAM: VITALS: Blood pressure is 136/92, heart rate 73, respiratory rate is 18, oxygen saturation is 93% on room air, temperature is 37.5 degrees centigrade. GENERAL: This is a well-nourished, well-developed, somewhat unkempt man dressed in street clothes, sitting on the bed, cooperative and in no acute distress. HEENT: Extraocular movements are intact. Pupils are equal , round, reactive to light. Mucous membranes are moist. Dentition is in good condition. His tongue has a rousseau coating. He has no oropharyngeal mucosal lesions and no posterior oropharyngeal mucus. He has an uncrowded airway, Mallampati class 1. NECK: Supple. HEART: There is a regular rate and rhythm with no murmurs, rubs, or gallops. LUNGS: Clear to auscultation bilaterally. ABDOMEN: Soft, nontender, nondistended with normal bowel sounds and no hepatosplenomegaly. EXTREMITIES: There is no cyanosis, clubbing, or edema. Radial and dorsalis pedis pulses are 2+ bilaterally. NEUROLOGIC: He is alert. Orientation was not checked. He is dysarthric. Cranial nerves 2 through 12 are grossly intact, but for dysarthria. There is no obvious cranial nerve lesion. Motor strength is 5/5 overall on the left and is 4/5 at the right biceps, triceps, and hand register of deeds. Sensation is intact to light touch. Deep tendon reflexes are 2+ bilaterally at the biceps and patellar tendons and absent bilaterally at the Achilles tendon. Rapid alternating movements are normal. Finger-nose testing is normal on the left and mildly slow on the right. There is no tremor. There is no rigidity. He is able to arise from seated to standing at a front-wheeled walker with no assistance, though his balance appears to be mildly impaired. SKIN: There are no obvious lesions, and there is no skin breakdown over his buttocks, sacrum, or coccyx. CURRENT LEVEL OF FUNCTION: Per the preadmission screen. He required setup for feeding. He needed foam built-up utensils. He could feed himself for several minutes. He was on nectar-thick liquids and pureed diet. Grooming required setup to minimal assist with voice cues. Upper body dressing was done seated with setup and standby assist. Lower body dressing required moderate assist and voice cues. Toileting required moderate assist with voice cues for clothing management. Bed mobility required contact guard assist. Transfers required contact guard to minimal assist. He used a front-wheeled walker. Balance standing required contact guard with voice cues. Endurance was fair. He was able to ambulate with minimal assist and a front-wheeled walker for 150 feet. He was noted to have a right drop foot. Communication was with severe dysarthria. He was considered a fall risk. On today's exam, he seems to be requiring less assistance to arise from seated and likely can transfer with standby assist. Otherwise, there are no significant changes to pre-admission screen. IMPRESSION: This is a 63-year-old man who has had a gradual onset of dysarthria and dysphagia and progressive weakness since July of 2018. This culminated in a fall. It took him quite a few hours to get attention from emergency medical services and be brought to the hospital and was outside of the window for thrombolysis. Subsequent evaluation with a brain MRI ruled out a stroke, and further imaging and consultation with Neurosurgery ruled out cervical spine disease component to his symptoms. He was considered to have possible myasthenia gravis versus possible bulbar neurodegenerative disease. He was treated with high-dose IV steroids and has had some improvement, but not dramatic, in his dysphagia and dysarthria. He has deficits to mobility and activities of daily living. He is appropriate for inpatient rehabilitation. There may be other therapeutic options available when lab results come back regarding the possibility of myasthenia gravis or upon followup with Neurology after his discharge. His goal is to complete a rehabilitation stay and then return home with supportive services. For a safe discharge, he will need to achieve modified independence for eating, dressing, bed mobility, and transfers. He will need to have modified independence using least restrictive device for ambulation on level and unlevel surfaces. It is hoped he will progress in his diet to dysphagia 2 or other less restrictive diet. He will need a good understanding of his impairments and the use of compensatory strategies. He will have therapy with Physical Therapy, Occupational Therapy, and Speech and Language Pathology for 60 minutes per day for each discipline on 5 to 7 days of the week. His expected duration of stay is 7 to 10 days. It is anticipated that, upon discharge, he will continue to benefit from home nursing, speech and language pathology, a nurse's aide, occupational therapy, and physical therapy. He may also benefit from a support group. PLAN: 1. Dysphagia and dysarthria, progressive over approximately 5 months, with an unknown etiology at present. He has had some improvements during his hospitalization. Assessment and treatment per Speech and Language Pathology. Initially, he will be continued on nectar-thick liquids and a dysphagia 1 diet. I have also ordered mouth care after each meal. 2. Debility with right-sided weakness in a formerly right-handed man. Evaluation and treatment per Physical Therapy and Occupational Therapy. 3. Risk for dehydration. He was clearly dehydrated on labs when he was admitted, and he had thick secretions covering his tongue. I will obtain a basic metabolic profile and, given that he is on nectar-thick liquids, we will consider the need for IV hydration. 4. Hypertension. He was on metoprolol alone prior to admission and now has the addition of amlodipine. I will order orthostatic blood pressure and pulse to rule out any autonomic dysfunction. 5. Urinary incontinence. Per report from [facility], he was continent of urine, but he had an incontinent episode when he arrived on the inpatient rehabilitation unit. I have ordered a bladder scan to rule out urinary retention and overflow incontinence. 6. Unclear indication for aspirin. We will discuss further and level of threshold to discontinue, especially as he is currently on enoxaparin. 7. Prophylaxis. He has had limited mobility which, combined with his age, increases his risk for deep venous thrombosis. Continue enoxaparin until mobility considerably improves. 8. Followup. He will see neurology, Dr. Gallegos, after his discharge. He will also need to establish with a primary care provider. /[id number]/MODL MTDD
[2018-12-11] MEDS: SENNOSIDES 1 TAB PO SCH (20:49)
[2018-12-12] MEDS: ASPIRIN EC 81 MG TAB PO SCH (08:54)
[2018-12-12] MEDS: POLYETHYLENE GLYCOL 3350 17 GM PKT PO SCH (08:56)
[2018-12-12] MEDS ORDERED: ENOXAPARIN 40 MG/0.4 ML SYR SC SCH (09:00)
[2018-12-12] MEDS ORDERED: METOPROLOL SUCCINATE XR 50 MG TAB PO SCH (09:00)
--- NOTE | 2018-12-12 10:55 | SOAPPROG ---
SOAP Progress Note Assessment/Plan: Assessment: Dysphagia and dysarthria, progressive over approximately 5 months, with an unknown etiology at present. He has had some improvements during his hospitalization. Assessment and treatment per Speech and Language Pathology. Initially, he will be continued on nectar-thick liquids and a dysphagia 1 diet. I have also ordered mouth care after each meal. Debility with right-sided weakness in a formerly right-handed man. Evaluation and treatment per Physical Therapy and Occupational Therapy. Risk for dehydration. He was clearly dehydrated on labs when he was admitted, and he had thick secretions covering his tongue. I will obtain a basic metabolic profile and, given that he is on nectar-thick liquids, we will consider the need for IV hydration. Cognitive impairment. Scored 19/30 on the [place] cognitive assessment. Prominent memory loss; also deficit to executive function. * Continue treatment per speech and language pathology. Hypertension. He was on metoprolol alone prior to admission and now has the addition of amlodipine. * Also with orthostasis. He denies lightheadedness. * Diastolic dysfunction and mild LVH on echo in the hospital. * Will increase amlodipine form 2.5 mg to 5 mg QD starting 12/13/2018. Will decrease metoprolol ER from 50 mg QD to 25 mg QD to allow more heart rate reactivity to orthostasis. Urinary incontinence. Per report from [facility], he was continent of urine, but he had an incontinent episode when he arrived on the inpatient rehabilitation unit. * Negligible PVR. Unclear indication for aspirin. Discontinue starting 12/13/2018. Prophylaxis. He has had limited mobility which, combined with his age, increases his risk for deep venous thrombosis. * Therapies report much improved mobility. Discontinue enoxaparin starting 12/13. Followup. He will see neurology, Dr. Gallegos, after his discharge. He will also need to establish with a primary care provider. 12/12/18 14:32 Subjective: No complaints. Slept well. Not in pain. No fevers or chills, no cough or dyspnea. Objective: Vital Signs Temp Pulse Resp BP Pulse Ox 36.9 C 68 16 140/94 H 92 12/12/18 08:00 12/12/18 08:54 12/12/18 08:00 12/12/18 08:55 12/12/18 08:00 03/12/12/18 12/13/18 05:59 05:59 05:59 Intake Total 580 Output Total 750 Balance -170 Physical Exam - Physical Exam General Appearance: WD/WN, alert, no apparent distress Respiratory: normal breath sounds, No crackles, No rhonchi, No wheezing Cardiac/Chest: regular rate, rhythm, No edema, No diastolic murmur, No systolic murmur Skin: normal color, warm/dry Neuro/Psych: alert, normal mood/affect, oriented x 3, speech abnormalities ( Dysarthria) ICD10 Worksheet Patient Problems: Problems Problem Status Onset Aphasic disturbance Acute Weakness Acute
[2018-12-12] MEDS ORDERED: BISACODYL 10 MG SUPP PR PRN (10:56)
[2018-12-12 16:32] LABS: PLATELET COUNT 203 10^3/uL (150-400)
[2018-12-12] MEDS: SENNOSIDES 1 TAB PO SCH (22:13)
[2018-12-13] MEDS: METOPROLOL SUCCINATE XR 25 MG TAB PO SCH (09:10)
[2018-12-13] MEDS: amLODIPine BESYLATE 5 MG TAB PO SCH (09:10)
[2018-12-13] MEDS: ASPIRIN EC 81 MG TAB PO SCH (09:10)
[2018-12-13] MEDS: POLYETHYLENE GLYCOL 3350 17 GM PKT PO SCH (09:11)
--- NOTE | 2018-12-13 09:54 | SOAPPROG ---
SOAP Progress Note Assessment/Plan: Assessment: Dysphagia and dysarthria, progressive over approximately 5 months, with an unknown etiology at present. He has had some improvements during his hospitalization. * Disorganized oral phase of swallowing with pharyngeal pooling. Lingual function with weakness and decreased coordination impacts articulation of speech and swallowing. * Continued on nectar-thick liquids and a dysphagia 1 diet. * Continue [employer] Debility with right-sided weakness in a formerly right-handed man. * Initial functional independence measure is 68 on 12/13/2018. Independent with bed mobility. Contact guard assist for transfers. Ambulated 150 ft with contact guard assist using a front wheeled walker. Benefitting from an AFO for right foot drop, which has been a chronic problem. Climbed and descended 3 stairs with bilateral rails. Grooming and hygiene are done standing with contact guard assist. Upper body requires setup and standby assist. Lower body dressing with minimal assist for the AFO and shoes. Bath transfers done with supervision and bathing with supervision. Toileting requires contact guard assist. Decreased coordination more so on the right lower extremity than the left. * Continue treatment per Physical Therapy and Occupational Therapy. Risk for dehydration with need for thickened liquids. * BMP 326 with BUN over creatinine greater than 20-1. Orthostatic by pulse on . * Continue efforts at hydration. Cognitive impairment. Scored 19/30 on the [place] cognitive assessment. Prominent memory loss; also deficit to executive function, reasoning, lexical fluency.. * Continue treatment per speech and language pathology. Hypertension. He was on metoprolol alone prior to admission and now has the addition of amlodipine. * Also with orthostasis. He denies lightheadedness. * Diastolic dysfunction and mild LVH on echo in the hospital. * Increased amlodipine form 2.5 mg to 5 mg QD starting 12/13/2018, and decreased metoprolol ER from 50 mg QD to 25 mg QD to allow more heart rate reactivity to orthostasis. Urinary incontinence. Per report from [facility], he was continent of urine, but he had an incontinent episode when he arrived on the inpatient rehabilitation unit. * Negligible PVR. Unclear indication for aspirin. Discontinue starting 12/13/2018. Prophylaxis. He has had limited mobility which, combined with his age, increases his risk for deep venous thrombosis. * Therapies report much improved mobility. Discontinue enoxaparin starting 12/13. DISPOSITION: Attended staffing, 12/13/2018, 15 min. Discussed with case management, nursing, dietitian, PT, OT, [employer]. Lives alone, neighbors are helpful , but he may need a conservator. Functional goal is independence or modified independence, and least restrictive diet. Discharge date set for 12/26/2018. Followup. He will see Neurology, Dr. Gallegos, after his discharge. He will also need to establish with a primary care provider. 12/13/18 11:32 Subjective: No complaints. Denies mouth pain or pain with swallowing. No fevers or chills , no cough or dyspnea. Objective: Vital Signs Temp Pulse Resp BP Pulse Ox 36.4 C 68 16 128/75 H 96 12/13/18 08:00 12/13/18 08:00 12/13/18 08:00 12/13/18 08:00 12/13/18 08:00 Laboratory Results 12/12/18 15:50 12/12/18 15:50 12/12/18 12/13/18 12/14/18 05:59 05:59 05:59 Intake Total 580 2840 580 Output Total 750 1999 675 Balance -170 840 -95 - Time Spent With Patient Time Spent With Patient: Greater than 35 min floor time today, including more than 50% of time in coordination of care during staffing meeting, and counseling patient. Physical Exam - Physical Exam General Appearance: WD/WN, alert, no apparent distress EENT: pharynx normal (Brownish coating on tongue) Respiratory: No respiratory distress, No accessory muscle use Cardiac/Chest: No edema Skin: normal color, warm/dry Neuro/Psych: alert, normal mood/affect, oriented x 3 ICD10 Worksheet Patient Problems: Problems Problem Status Onset Aphasic disturbance Acute Weakness Acute
[2018-12-13] MEDS: SENNOSIDES 1 TAB PO SCH (20:28)
[2018-12-14] MEDS: METOPROLOL SUCCINATE XR 25 MG TAB PO SCH (10:04)
[2018-12-14] MEDS: amLODIPine BESYLATE 5 MG TAB PO SCH (10:04)
[2018-12-14] MEDS: ASPIRIN EC 81 MG TAB PO SCH (10:04)
[2018-12-14] MEDS: POLYETHYLENE GLYCOL 3350 17 GM PKT PO SCH (10:05)
--- NOTE | 2018-12-14 11:42 | SOAPPROG ---
SOAP Progress Note Assessment/Plan: Assessment: Dysphagia and dysarthria, progressive over approximately 5 months, with an unknown etiology at present. He has had some improvements during his hospitalization. * Disorganized oral phase of swallowing with pharyngeal pooling. Lingual function with weakness and decreased coordination impacts articulation of speech and swallowing. * Continued on nectar-thick liquids and a dysphagia 1 diet. 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 * Initial functional independence measure is 68 on 12/13/2018. Independent with bed mobility. Contact guard assist for transfers. Ambulated 150 ft with contact guard assist using a front wheeled walker. Benefitting from an AFO for right foot drop, which has been a chronic problem. Climbed and descended 3 stairs with bilateral rails. Grooming and hygiene are done standing with contact guard assist. Upper body requires setup and standby assist. Lower body dressing with minimal assist for the AFO and shoes. Bath transfers done with supervision and bathing with supervision. Toileting requires contact guard assist. Decreased coordination more so on the right lower extremity than the left. * Continue treatment per Physical Therapy and Occupational Therapy. Risk for dehydration with need for thickened liquids. * BMP 326 with BUN over creatinine greater than 20-1. Orthostatic by pulse on . * Continue efforts at hydration. Cognitive impairment. Scored 19/30 on the Sohan cognitive assessment. Prominent memory loss; also deficit to executive function, reasoning, lexical fluency.. * Continue treatment per speech and language pathology. Hypertension. He was on metoprolol alone prior to admission and now has the addition of amlodipine. * Also with orthostasis. He denies lightheadedness. * Diastolic dysfunction and mild LVH on echo in the hospital. * Increased amlodipine form 2.5 mg to 5 mg QD starting 12/13/2018, and decreased metoprolol ER from 50 mg QD to 25 mg QD to allow more heart rate reactivity to orthostasis. Urinary incontinence. Per report from [facility], he was continent of urine, but he had an incontinent episode when he arrived on the inpatient rehabilitation unit. * Negligible PVR. Unclear indication for aspirin. Discontinue starting 12/14/2018. Prophylaxis. He has had limited mobility which, combined with his age, increases his risk for deep venous thrombosis. * Therapies report much improved mobility. Discontinue enoxaparin starting 12/13. DISPOSITION: Attended staffing, 12/13/2018, 15 min. Discussed with case management, nursing, dietitian, PT, OT, COMMERCIAL CONSTRUCTION PROJECT MANAGER. Lives alone, neighbors are helpful , but he may need a conservator. Functional goal is independence or modified independence, and least restrictive diet. Discharge date set for 12/26/2018. Followup. He will see Neurology, Dr. Gallegos, after his discharge. He will also need to establish with a primary care provider. 12/14/18 11:41 Subjective: Constipation for several days. Otherwise without complaints. Not in pain, no nausea or vomiting, no fevers or chills, no cough or dyspnea. Objective: Vital Signs Temp Pulse Resp BP Pulse Ox 37.0 C 63 16 136/75 H 94 12/14/18 07:15 12/14/18 10:04 12/14/18 07:15 12/14/18 10:04 12/14/18 07:15 Laboratory Results 12/12/18 15:50 12/12/18 15:50 12/13/18 12/14/18 12/15/18 05:59 05:59 05:59 Intake Total 2840 820 Output Total 2000 1975 450 Balance 840 -1155 -450 Physical Exam - Physical Exam General Appearance: WD/WN, alert, no apparent distress Respiratory: No respiratory distress, No accessory muscle use Skin: normal color, warm/dry Neuro/Psych: abnormal gait (Steppage, with FWW), speech abnormalities ( Dysarthric) ICD10 Worksheet Patient Problems: Problems Problem Status Onset Aphasic disturbance Acute Weakness Acute
[2018-12-14] MEDS: SENNOSIDES 1 TAB PO SCH (21:07)
[2018-12-15] MEDS: amLODIPine BESYLATE 5 MG TAB PO SCH (08:28)
[2018-12-15] MEDS: METOPROLOL SUCCINATE XR 25 MG TAB PO SCH (08:28)
[2018-12-15] MEDS: POLYETHYLENE GLYCOL 3350 17 GM PKT PO SCH (08:28)
--- NOTE | 2018-12-15 09:34 | SOAPPROG ---
SOAP Progress Note Assessment/Plan: Assessment: Dysphagia and dysarthria, progressive over approximately 5 months, with an unknown etiology at present. He has had some improvements during his hospitalization. * Disorganized oral phase of swallowing with pharyngeal pooling. Lingual function with weakness and decreased coordination impacts articulation of speech and swallowing. * Continued on nectar-thick liquids and a dysphagia 1 diet. * Trial of dysphagia 2 diet and thin liquids, 12/15/2018. 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 * Initial functional independence measure is 68 on 12/13/2018. Independent with bed mobility. Contact guard assist for transfers. Ambulated 150 ft with contact guard assist using a front wheeled walker. Benefitting from an AFO for right foot drop, which has been a chronic problem. Climbed and descended 3 stairs with bilateral rails. Grooming and hygiene are done standing with contact guard assist. Upper body requires setup and standby assist. Lower body dressing with minimal assist for the AFO and shoes. Bath transfers done with supervision and bathing with supervision. Toileting requires contact guard assist. Decreased coordination more so on the right lower extremity than the left. * Has since ambulated 500 ft outside with front wheeled walker on uneven surfaces, contact guard assist. * Continue treatment per Physical Therapy and Occupational Therapy. Risk for dehydration with need for thickened liquids. * BMP 326 with BUN over creatinine greater than 20-1. Orthostatic by pulse on . * Continue efforts at hydration. Cognitive impairment. Scored 19/30 on the [place] cognitive assessment. Prominent memory loss; also deficit to executive function, reasoning, lexical fluency.. * Continue treatment per speech and language pathology. Constipation. Discussed with patient 12/15/2018. He thinks he may have a bowel movement today. If not, will increase laxatives. Hypertension. He was on metoprolol alone prior to admission and now has the addition of amlodipine. * Also with orthostasis. He denies lightheadedness. * Diastolic dysfunction and mild LVH on echo in the hospital. * Increased amlodipine form 2.5 mg to 5 mg QD starting 12/13/2018, and decreased metoprolol ER from 50 mg QD to 25 mg QD to allow more heart rate reactivity to orthostasis. Urinary incontinence. Per report from [facility], he was continent of urine, but he had an incontinent episode when he arrived on the inpatient rehabilitation unit. * Negligible PVR. Unclear indication for aspirin. Discontinue starting 12/14/2018. Prophylaxis. He has had limited mobility which, combined with his age, increases his risk for deep venous thrombosis. * Therapies report much improved mobility. Discontinue enoxaparin starting 12/13. DISPOSITION: Attended staffing, 12/13/2018, 15 min. Discussed with case management, nursing, dietitian, PT, OT, RESPIRATORY MEDICINE PHYSICIAN. Lives alone, neighbors are helpful , but he may need a conservator. Functional goal is independence or modified independence, and least restrictive diet. Discharge date set for 12/26/2018. Followup. He will see Neurology, Dr. Gallegos, after his discharge. He will also need to establish with a primary care provider. 12/15/18 09:31 12/15/18 09:34 Subjective: No complaints. Has constipation times several days. Reports his usual habit is about every other day. Denies abdominal pain. No nausea or vomiting. Good appetite. Objective: Vital Signs Temp Pulse Resp BP Pulse Ox 36.9 C 61 16 107/66 94 12/15/18 06:17 12/15/18 06:17 12/15/18 06:17 12/15/18 06:17 12/15/18 06:17 Laboratory Results 12/12/18 15:50 12/12/18 15:50 12/14/18 12/15/18 12/16/18 05:59 05:59 05:59 Intake Total 820 1650 Output Total 1975 1100 Balance -1155 550 Physical Exam - Physical Exam General Appearance: WD/WN, alert, no apparent distress Respiratory: No respiratory distress, No accessory muscle use Abdomen: non-tender, soft, No distended Skin: normal color, warm/dry Neuro/Psych: alert, normal mood/affect, oriented x 3, abnormal gait, speech abnormalities (Dysarthria) ICD10 Worksheet Patient Problems: Problems Problem Status Onset Aphasic disturbance Acute Weakness Acute
[2018-12-15] MEDS: SENNOSIDES 1 TAB PO SCH (20:07)
[2018-12-16] MEDS: POLYETHYLENE GLYCOL 3350 17 GM PKT PO SCH (07:58)
[2018-12-16] MEDS: METOPROLOL SUCCINATE XR 25 MG TAB PO SCH (07:58)
[2018-12-16] MEDS: amLODIPine BESYLATE 5 MG TAB PO SCH (07:58)
--- NOTE | 2018-12-16 10:09 | SOAPPROG ---
SOAP Progress Note Assessment/Plan: Assessment: Dysphagia and dysarthria, progressive over approximately 5 months, with an unknown etiology at present. He has had some improvements during his hospitalization. * Disorganized oral phase of swallowing with pharyngeal pooling. Lingual function with weakness and decreased coordination impacts articulation of speech and swallowing. * Continued on nectar-thick liquids and a dysphagia 1 diet. * Trial of dysphagia 2 diet and thin liquids, 12/15/2018. 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 * Initial functional independence measure is 68 on 12/13/2018. Independent with bed mobility. Contact guard assist for transfers. Ambulated 150 ft with contact guard assist using a front wheeled walker. Benefitting from an bilateral AFOs for foot drop, which has been a chronic problem, likely due to spinal issues with history of lumbar surgery. Climbed and descended 3 stairs with bilateral rails. Grooming and hygiene are done standing with contact guard assist. Upper body requires setup and standby assist. Lower body dressing with minimal assist for the AFOs and shoes. Bath transfers done with supervision and bathing with supervision. Toileting requires contact guard assist. Decreased coordination more so on the right lower extremity than the left. * Has since ambulated 500 ft outside with front wheeled walker on uneven surfaces, contact guard assist. * Continue treatment per Physical Therapy and Occupational Therapy. Risk for dehydration with need for thickened liquids. * BMP 12/12 with BUN over creatinine greater than 20-1. Orthostatic by pulse on 12/13/2018. * Continue efforts at hydration. Cognitive impairment. Scored 19/30 on the [place] cognitive assessment. Prominent memory loss; also deficit to executive function, reasoning, lexical fluency.. * Continue treatment per speech and language pathology. Constipation. Had bowel movement 12/15/2018. Continue laxatives. Hypertension. He was on metoprolol alone prior to admission and now has the addition of amlodipine. * Also with orthostasis. He denies lightheadedness. * Diastolic dysfunction and mild LVH on echo in the hospital. * Increased amlodipine form 2.5 mg to 5 mg QD starting 12/13/2018, and decreased metoprolol ER from 50 mg QD to 25 mg QD to allow more heart rate reactivity to orthostasis. Urinary incontinence. Per report from [facility], he was continent of urine, but he had an incontinent episode when he arrived on the inpatient rehabilitation unit. * Negligible PVR. Unclear indication for aspirin. Discontinue starting 12/14/2018. Prophylaxis. He has had limited mobility which, combined with his age, increases his risk for deep venous thrombosis. * Therapies report much improved mobility. Discontinue enoxaparin starting 12/13. DISPOSITION: Attended staffing, 12/13/2018, 15 min. Discussed with case management, nursing, dietitian, PT, OT, ELECTRICAL RESEARCH ENGINEER. Lives alone, neighbors are helpful , but he may need a conservator. Functional goal is independence or modified independence, and least restrictive diet. Discharge date set for 12/26/2018. Followup. He will see Neurology, Dr. Gallegos, after his discharge. He will also need to establish with a primary care provider. 12/16/18 10:06 Subjective: No complaints. Not in pain. Sleeping well. Bowels moved yesterday. He feels he is walking better with bilateral AFOs. Objective: Vital Signs Temp Pulse Resp BP Pulse Ox 36.9 C 73 16 129/91 H 95 12/16/18 06:00 12/16/18 06:00 12/16/18 06:00 12/16/18 06:00 12/16/18 06:00 Laboratory Results 12/12/18 15:50 12/12/18 15:50 12/15/18 12/16/18 12/17/18 05:59 05:59 05:59 Intake Total 1650 2000 720 Output Total 1100 1400 Balance 550 600 720 Physical Exam - Physical Exam General Appearance: WD/WN, alert, no apparent distress Respiratory: normal breath sounds, No crackles, No rhonchi, No wheezing Cardiac/Chest: regular rate, rhythm, No diastolic murmur, No systolic murmur Skin: normal color, warm/dry Neuro/Psych: alert, normal mood/affect, oriented x 3, speech abnormalities ( Dysarthria) ICD10 Worksheet Patient Problems: Problems Problem Status Onset Aphasic disturbance Acute Weakness Acute
[2018-12-16] MEDS: SENNOSIDES 1 TAB PO SCH (20:03)
[2018-12-17] MEDS: POLYETHYLENE GLYCOL 3350 17 GM PKT PO SCH (07:52)
[2018-12-17] MEDS: METOPROLOL SUCCINATE XR 25 MG TAB PO SCH (07:53)
[2018-12-17] MEDS: amLODIPine BESYLATE 5 MG TAB PO SCH (07:53)
--- NOTE | 2018-12-17 11:14 | SOAPPROG ---
SOAP Progress Note Assessment/Plan: Assessment: Dysphagia and dysarthria, progressive over approximately 5 months, with an unknown etiology at present. He has had some improvements during his hospitalization. * Disorganized oral phase of swallowing with pharyngeal pooling. Lingual function with weakness and decreased coordination impacts articulation of speech and swallowing. * Continued on nectar-thick liquids and a dysphagia 1 diet. * Advanced from dysphagia 1 diet and nectar thick liquids to dysphagia 2 diet and thin liquids, 12/15/2018. 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 * Initial functional independence measure is 68 on 12/13/2018. Independent with bed mobility. Contact guard assist for transfers. Ambulated 150 ft with contact guard assist using a front wheeled walker. Benefitting from an bilateral AFOs for foot drop, which has been a chronic problem, likely due to spinal issues with history of lumbar surgery. Climbed and descended 3 stairs with bilateral rails. Grooming and hygiene are done standing with contact guard assist. Upper body requires setup and standby assist. Lower body dressing with minimal assist for the AFOs and shoes. Bath transfers done with supervision and bathing with supervision. Toileting requires contact guard assist. Decreased coordination more so on the right lower extremity than the left. * Has since ambulated 500 ft outside with front wheeled walker on uneven surfaces, contact guard assist. Advanced to independent in his room. Reports that he is able to Don and doff AFOs independently. * Continue treatment per Physical Therapy and Occupational Therapy. Risk for dehydration with need for thickened liquids. * BMP 12/12 with BUN over creatinine greater than 20-1. Orthostatic by pulse on 12/13/2018. * Continue efforts at hydration. Cognitive impairment. Scored 19/30 on the [facility] cognitive assessment. Prominent memory loss; also deficit to executive function, reasoning, lexical fluency.. * Continue treatment per speech and language pathology. Constipation. Had bowel movement 12/15/2018. Continue laxatives. Hypertension. He was on metoprolol alone prior to admission and now has the addition of amlodipine. * Also with orthostasis. He denies lightheadedness. * Diastolic dysfunction and mild LVH on echo in the hospital. * Increased amlodipine form 2.5 mg to 5 mg QD starting 12/13/2018, and decreased metoprolol ER from 50 mg QD to 25 mg QD to allow more heart rate reactivity to orthostasis. Urinary incontinence. Per report from [facility] ([place], [place]), he was continent of urine, but he had an incontinent episode when he arrived on the inpatient rehabilitation unit. * Negligible PVR. Unclear indication for aspirin. Discontinue starting 12/14/2018. Prophylaxis. He has had limited mobility which, combined with his age, increases his risk for deep venous thrombosis. * Therapies report much improved mobility. Discontinue enoxaparin starting 12/13. DISPOSITION: Attended staffing, 12/13/2018, 15 min. Discussed with case management, nursing, dietitian, PT, OT, PUG MACHINE OPERATOR. Lives alone, neighbors are helpful , but he may need a conservator. Functional goal is independence or modified independence, and least restrictive diet. Discharge date set for 12/26/2018. Followup. He will see Neurology, Dr. Gallegos, after his discharge. He will also need to establish with a primary care provider. 12/17/18 11:11 Subjective: No complaints. Slept well. Not in pain. No cough or dyspnea, no fever chills. Has advanced to dysphagia 2 diet with thin liquids and to independent in his room. Ambulating better with AFOs. Objective: Vital Signs Temp Pulse Resp BP Pulse Ox 36.8 C 63 15 109/69 95 12/17/18 05:32 12/17/18 05:32 12/17/18 05:32 12/17/18 05:32 12/17/18 05:32 Laboratory Results 12/12/18 15:50 12/12/18 15:50 12/16/18 12/17/18 12/18/18 05:59 05:59 05:59 Intake Total 1999 1110 340 Output Total 1400 1750 Balance 600 -640 340 Physical Exam - Physical Exam General Appearance: WD/WN, alert, no apparent distress Respiratory: No respiratory distress, No accessory muscle use Skin: normal color, warm/dry Neuro/Psych: alert, normal mood/affect, oriented x 3, abnormal gait (Normal pace , normal step length. Step oz and foot drag have been corrected with bilateral AFOs. Using front wheeled walker.), speech abnormalities (Dysarthria) ICD10 Worksheet Patient Problems: Problems Problem Status Onset Aphasic disturbance Acute Weakness Acute
[2018-12-17] MEDS: SENNOSIDES 1 TAB PO SCH (21:18)
[2018-12-18] MEDS: amLODIPine BESYLATE 5 MG TAB PO SCH (09:16)
[2018-12-18] MEDS: METOPROLOL SUCCINATE XR 25 MG TAB PO SCH (09:17)
[2018-12-18] MEDS: POLYETHYLENE GLYCOL 3350 17 GM PKT PO SCH (09:18)
--- NOTE | 2018-12-18 09:48 | SOAPPROG ---
SOAP Progress Note Assessment/Plan: Assessment: Dysphagia and dysarthria, progressive over approximately 5 months, with an unknown etiology at present. He has had some improvements during his hospitalization. * Disorganized oral phase of swallowing with pharyngeal pooling. Lingual function with weakness and decreased coordination impacts articulation of speech and swallowing. * Continued on nectar-thick liquids and a dysphagia 1 diet. * Advanced from dysphagia 1 diet and nectar thick liquids to dysphagia 2 diet and thin liquids, 12/15/2018. 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 * Initial functional independence measure is 68 on 12/13/2018. Independent with bed mobility. Contact guard assist for transfers. Ambulated 150 ft with contact guard assist using a front wheeled walker. Benefitting from an bilateral AFOs for foot drop, which has been a chronic problem, likely due to spinal issues with history of lumbar surgery. Climbed and descended 3 stairs with bilateral rails. Grooming and hygiene are done standing with contact guard assist. Upper body requires setup and standby assist. Lower body dressing with minimal assist for the AFOs and shoes. Bath transfers done with supervision and bathing with supervision. Toileting requires contact guard assist. Decreased coordination more so on the right lower extremity than the left. * Has since ambulated 500 ft outside with front wheeled walker on uneven surfaces, contact guard assist. Advanced to independent in his room. Reports that he is able to Don and doff AFOs independently. * Continue treatment per Physical Therapy and Occupational Therapy. Risk for dehydration with need for thickened liquids. * BMP 12/12 with BUN over creatinine greater than 20-1. Orthostatic by pulse on 12/13/2018. * Continue efforts at hydration. Cognitive impairment. Scored 19/30 on the [facility] cognitive assessment. Prominent memory loss; also deficit to executive function, reasoning, lexical fluency.. * Continue treatment per speech and language pathology. Constipation. Had bowel movement 12/15/2018. Continue laxatives. Hypertension. He was on metoprolol alone prior to admission and now has the addition of amlodipine. * Also with orthostasis. He denies lightheadedness. Orthostatic blood pressure much improved, 12/17/2018. * Diastolic dysfunction and mild LVH on echo in the hospital. * Increased amlodipine form 2.5 mg to 5 mg QD starting 12/13/2018, and decreased metoprolol ER from 50 mg QD to 25 mg QD to allow more heart rate reactivity to orthostasis. Urinary incontinence. Per report from [facility], he was continent of urine, but he had an incontinent episode when he arrived on the inpatient rehabilitation unit. * Negligible PVR. Unclear indication for aspirin. Discontinue starting 12/14/2018. Prophylaxis. He has had limited mobility which, combined with his age, increases his risk for deep venous thrombosis. * Therapies report much improved mobility. Discontinue enoxaparin starting 12/13. DISPOSITION: Attended staffing, 12/13/2018, 15 min. Discussed with case management, nursing, dietitian, PT, OT, FOOTWEAR PRODUCTION MACHINE OPERATOR. Lives alone, neighbors are helpful , but he may need a conservator. Functional goal is independence or modified independence, and least restrictive diet. Discharge date set for 12/26/2018. Followup. He will see Neurology, Dr. Gallegos, after his discharge. He will also need to establish with a primary care provider. 12/18/18 09:47 Subjective: No complaints. Slept well. Not in pain. Thinks his speech is improving. Objective: Vital Signs Temp Pulse Resp BP Pulse Ox 37.1 C 82 16 121/77 H 99 12/18/18 06:19 12/18/18 09:17 12/18/18 06:19 12/18/18 09:17 12/18/18 06:19 Laboratory Results 12/12/18 15:50 12/12/18 15:50 12/17/18 12/18/18 12/19/18 05:59 05:59 05:59 Intake Total 1110 1460 Output Total 1750 1000 Balance -640 460 Physical Exam - Physical Exam General Appearance: WD/WN, alert, no apparent distress Respiratory: No respiratory distress, No accessory muscle use Skin: normal color, warm/dry Neuro/Psych: alert, normal mood/affect, oriented x 3, speech abnormalities ( Dysarthria) ICD10 Worksheet Patient Problems: Problems Problem Status Onset Aphasic disturbance Acute Weakness Acute
[2018-12-18] MEDS: SENNOSIDES 1 TAB PO SCH (19:52)
[2018-12-19] MEDS: amLODIPine BESYLATE 5 MG TAB PO SCH (08:10)
[2018-12-19] MEDS: METOPROLOL SUCCINATE XR 25 MG TAB PO SCH (08:10)
[2018-12-19] MEDS: POLYETHYLENE GLYCOL 3350 17 GM PKT PO SCH (08:11)
--- NOTE | 2018-12-19 14:32 | SOAPPROG ---
SOAP Progress Note Assessment/Plan: Assessment: Dysphagia and dysarthria, progressive over approximately 5 months, with an unknown etiology at present. He has had some improvements during his hospitalization. * Disorganized oral phase of swallowing with pharyngeal pooling. Lingual function with weakness and decreased coordination impacts articulation of speech and swallowing. * Initially on nectar-thick liquids and a dysphagia 1 diet. Advanced to dysphagia 2 diet and thin liquids, 12/15/2018. 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 * Initial functional independence measure is 68 on 12/13/2018. Independent with bed mobility. Contact guard assist for transfers. Ambulated 150 ft with contact guard assist using a front wheeled walker. Benefitting from an bilateral AFOs for foot drop, which has been a chronic problem, likely due to spinal issues with history of lumbar surgery. Climbed and descended 3 stairs with bilateral rails. Grooming and hygiene are done standing with contact guard assist. Upper body requires setup and standby assist. Lower body dressing with minimal assist for the AFOs and shoes. Bath transfers done with supervision and bathing with supervision. Toileting requires contact guard assist. Decreased coordination more so on the right lower extremity than the left. * Has since ambulated 500 ft outside with front wheeled walker on uneven surfaces, contact guard assist. Advanced to independent in his room. Reports that he is able to Don and doff AFOs independently. * Continue treatment per Physical Therapy and Occupational Therapy. Risk for dehydration with need for thickened liquids. * BMP 12/12 with BUN over creatinine greater than 20-1. Orthostatic by pulse on 12/13/2018. * Continue efforts at hydration. Cognitive impairment. Scored 19/30 on the [place] cognitive assessment. Prominent memory loss; also deficit to executive function, reasoning, lexical fluency.. * MoCA score increased to 24/30 on 12/19/2018. * Continue treatment per speech and language pathology. Constipation. Had bowel movement 12/17/2018. Continue laxatives. Hypertension. He was on metoprolol alone prior to admission and now has the addition of amlodipine. * Also with orthostasis. He denies lightheadedness. Orthostatic blood pressure much improved, 12/17/2018. * Diastolic dysfunction and mild LVH on echo in the hospital. * Increased amlodipine form 2.5 mg to 5 mg QD starting 12/13/2018, and decreased metoprolol ER from 50 mg QD to 25 mg QD to allow more heart rate reactivity to orthostasis. Urinary incontinence. Per report from [facility], he was continent of urine, but he had an incontinent episode when he arrived on the inpatient rehabilitation unit. * Negligible PVR. Unclear indication for aspirin. Discontinue starting 12/14/2018. Prophylaxis. He has had limited mobility which, combined with his age, increases his risk for deep venous thrombosis. * Therapies report much improved mobility. Discontinue enoxaparin starting 12/13. DISPOSITION: Attended staffing, 12/13/2018, 15 min. Discussed with case management, nursing, dietitian, PT, OT, HIGHWAY INSPECTOR. Lives alone, neighbors are helpful , but he may need a conservator. Functional goal is independence or modified independence, and least restrictive diet. Discharge date set for 12/26/2018. Followup. He will see Neurology, Dr. Gallegos, after his discharge. He will also need to establish with a primary care provider. 12/19/18 14:28 Subjective: No complaints. Sleeping well. Not in pain. No cough or dyspnea, no fevers or chills. No bowel movement recorded since 12/17 but he denies any GI distress. Objective: Vital Signs Temp Pulse Resp BP Pulse Ox 36.8 C 83 15 146/81 H 94 12/19/18 12:55 12/19/18 12:55 12/19/18 07:39 12/19/18 12:55 12/19/18 12:55 Laboratory Results 12/12/18 15:50 12/12/18 15:50 12/18/18 12/19/18 12/20/18 05:59 05:59 05:59 Intake Total 1460 1715 Output Total 1000 850 250 Balance 460 865 -250 Physical Exam - Physical Exam General Appearance: WD/WN, alert, no apparent distress Respiratory: normal breath sounds, No crackles, No rhonchi, No wheezing Cardiac/Chest: regular rate, rhythm, No diastolic murmur, No systolic murmur Skin: normal color, warm/dry Neuro/Psych: alert, normal mood/affect, oriented x 3, motor weakness (Bilateral lower extremity, left from than right, on and descending 3 stairs in PT gym.), speech abnormalities (Dysarthric.) ICD10 Worksheet Patient Problems: Problems Problem Status Onset Aphasic disturbance Acute Weakness Acute
[2018-12-19] MEDS: SENNOSIDES 1 TAB PO SCH (20:15)
[2018-12-20] MEDS: amLODIPine BESYLATE 5 MG TAB PO SCH (08:46)
[2018-12-20] MEDS: POLYETHYLENE GLYCOL 3350 17 GM PKT PO SCH (08:47)
[2018-12-20] MEDS: METOPROLOL SUCCINATE XR 25 MG TAB PO SCH (08:47)
--- NOTE | 2018-12-20 09:34 | SOAPPROG ---
SOAP Progress Note Assessment/Plan: Assessment: Dysphagia and dysarthria, progressive over approximately 5 months, with an unknown etiology at present. He has had some improvements during his hospitalization. * Disorganized oral phase of swallowing with pharyngeal pooling. Lingual function with weakness and decreased coordination impacts articulation of speech and swallowing. * Initially on nectar-thick liquids and a dysphagia 1 diet. Advanced to dysphagia 2 diet and thin liquids, 12/15/2018. 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 * Initial functional independence measure is 68 on 12/13/2018. Scored 21/56 on the [place]isneros balance test. Independent with bed mobility. Contact guard assist for transfers. Ambulated 150 ft with contact guard assist using a front wheeled walker. Benefitting from an bilateral AFOs for foot drop, which has been a chronic problem, likely due to spinal issues with history of lumbar surgery. Climbed and descended 3 stairs with bilateral rails. Grooming and hygiene are done standing with contact guard assist. Upper body requires setup and standby assist. Lower body dressing with minimal assist for the AFOs and shoes. Bath transfers done with supervision and bathing with supervision. Toileting requires contact guard assist. Decreased coordination more so on the right lower extremity than the left. * Has since ambulated 500 ft outside with front wheeled walker on uneven surfaces, contact guard assist. Advanced to independent in his room. Reports that he is able to Don and doff AFOs independently. * Continue treatment per Physical Therapy and Occupational Therapy. Risk for dehydration with need for thickened liquids. * BMP 12/12 with BUN over creatinine greater than 20-1. Orthostatic by pulse on 12/13/2018. * Continue efforts at hydration. Cognitive impairment. Scored 19/30 on the Sohan cognitive assessment. Prominent memory loss; also deficit to executive function, reasoning, lexical fluency.. * MoCA score increased to 24/30 on 12/19/2018. * Continue treatment per speech and language pathology. Constipation. Had bowel movement 12/17/2018. Continue laxatives. Hypertension. He was on metoprolol alone prior to admission and now has the addition of amlodipine. * Also with orthostasis. He denies lightheadedness. Orthostatic blood pressure much improved, 12/17/2018. * Diastolic dysfunction and mild LVH on echo in the hospital. * Increased amlodipine form 2.5 mg to 5 mg QD starting 12/13/2018, and decreased metoprolol ER from 50 mg QD to 25 mg QD to allow more heart rate reactivity to orthostasis. Urinary incontinence. Per report from [facility], he was continent of urine, but he had an incontinent episode when he arrived on the inpatient rehabilitation unit. * Negligible PVR. Unclear indication for aspirin. Discontinue starting 12/14/2018. Prophylaxis. He has had limited mobility which, combined with his age, increases his risk for deep venous thrombosis. * Therapies report much improved mobility. Discontinue enoxaparin starting 12/13. DISPOSITION: Attended staffing, 12/13/2018, 15 min. 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 Lives alone, neighbors are helpful , but he may need a conservator. Functional goal is independence or modified independence, and least restrictive diet. Discharge date set for 12/26/2018. Followup. He will see Neurology, Dr. Gallegos, after his discharge. He will also need to establish with a primary care provider. 12/20/18 09:33 Subjective: No complaints. Sleeping well. Feeling stronger. No cough or dyspnea, no fevers or chills. Objective: Vital Signs Temp Pulse Resp BP Pulse Ox 36.5 C 96 18 130/80 H 95 12/20/18 08:00 12/20/18 08:47 12/20/18 08:00 12/20/18 08:47 12/20/18 08:00 Laboratory Results 12/12/18 15:50 12/12/18 15:50 12/19/18 12/20/18 12/21/18 05:59 05:59 05:59 Intake Total 1715 1030 Output Total 850 250 Balance 865 780 Physical Exam - Physical Exam General Appearance: WD/WN, alert, no apparent distress Respiratory: No respiratory distress, No accessory muscle use Skin: normal color, warm/dry Neuro/Psych: alert, normal mood/affect, oriented x 3, abnormal gait (Ambulating with PT using a walking staff. Has LOB with contact guard by physical therapist.), speech abnormalities (Dysarthria) ICD10 Worksheet Patient Problems: Problems Problem Status Onset Aphasic disturbance Acute Weakness Acute
--- NOTE | 2018-12-20 11:25 | SOAPPROG ---
SOAP Progress Note Assessment/Plan: Assessment: Dysphagia and dysarthria, progressive over approximately 5 months, with an unknown etiology at present. He has had some improvements during his hospitalization. * Disorganized oral phase of swallowing with pharyngeal pooling. Lingual function with weakness and decreased coordination impacts articulation of speech and swallowing. * Initially on nectar-thick liquids and a dysphagia 1 diet. Advanced to dysphagia 2 diet and thin liquids, 12/15/2018. 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 * Initial functional independence measure is 61 on 12/13/2018 improved to 90 as of 12/20/2018. Independent with bed mobility and ambulating with front wheeled walker or a 4 wheeled walker. Walked graded 100 ft. Needs standby assist for path finding and for walking outdoors. Climbed and descended still of 12 stairs. Standby assist for car transfer. Scored 21/56 on the Cisneros balance test. Modified independent for ADLs. Has shoulder and hand weakness. Benefitting from an bilateral AFOs for foot drop, which has been a chronic problem, likely due to spinal issues with history of lumbar surgery. Advanced to independent in his room. * Continue treatment per Physical Therapy and Occupational Therapy. Risk for dehydration with need for thickened liquids. * BMP 12/12 with BUN over creatinine greater than 20-1. Orthostatic by pulse on 12/13/2018. * Continue efforts at hydration. Cognitive impairment. Scored 19/30 on the Sohan cognitive assessment. * MoCA score increased to 24/30 on 12/19/2018. Continues with deficits to executive function, attention and problem-solving. Will likely need assist with financial and medication management. * Continue treatment per speech and language pathology. Constipation. Responding to laxatives. Hypertension. He was on metoprolol alone prior to admission and now has the addition of amlodipine. * Also with orthostasis. He denies lightheadedness. Orthostatic blood pressure much improved, 12/17/2018. * Diastolic dysfunction and mild LVH on echo in the hospital. * Increased amlodipine form 2.5 mg to 5 mg QD starting 12/13/2018, and decreased metoprolol ER from 50 mg QD to 25 mg QD to allow more heart rate reactivity to orthostasis. Urinary incontinence. Per report from [facility], he was continent of urine, but he had an incontinent episode when he arrived on the inpatient rehabilitation unit. * Negligible PVR. * No subsequent episodes of incontinence. Unclear indication for aspirin. Discontinue starting 12/14/2018. Prophylaxis. He has had limited mobility which, combined with his age, increases his risk for deep venous thrombosis. * Therapies report much improved mobility. Discontinue enoxaparin starting 12/13. DISPOSITION: Attended staffing, 12/20/2018, 15 min. Discussed with case management, nursing, dietitian, PT, OT, WAREHOUSE GUARD. Lives alone, neighbors are helpful , MD OCAMPO is a friend of his brother who lives in [place]. Eventual moved to [place] is possible. Functional goal is independence or modified independence , and least restrictive diet. Discharge date set for 12/22/2018. Followup. He will see Neurology, Dr. Gallegos, after his discharge. He will also need to establish with a primary care provider. 12/20/18 11:25 Objective: Vital Signs Temp Pulse Resp BP Pulse Ox 36.5 C 96 18 130/80 H 95 12/20/18 08:00 12/20/18 08:47 12/20/18 08:00 12/20/18 08:47 12/20/18 08:00 Laboratory Results 12/12/18 15:50 12/12/18 15:50 12/19/18 12/20/18 12/21/18 05:59 05:59 05:59 Intake Total 1715 1030 Output Total 784 250 Balance 865 780 - Time Spent With Patient Time Spent With Patient: Greater than 35 min floor time today, including more than 50% of time in coordination of care during staffing meeting, and counseling patient. ICD10 Worksheet Patient Problems: Problems Problem Status Onset Aphasic disturbance Acute Weakness Acute
[2018-12-20] MEDS: SENNOSIDES 1 TAB PO SCH (19:51)
[2018-12-21] MEDS: POLYETHYLENE GLYCOL 3350 17 GM PKT PO SCH (09:13)
[2018-12-21] MEDS: METOPROLOL SUCCINATE XR 25 MG TAB PO SCH (09:13)
[2018-12-21] MEDS: amLODIPine BESYLATE 5 MG TAB PO SCH (09:13)
--- NOTE | 2018-12-21 11:10 | SOAPPROG ---
SOAP Progress Note Assessment/Plan: Assessment: Dysphagia and dysarthria, progressive over approximately 5 months, with an unknown etiology. Antibody tests negative for myasthenia gravis. * Disorganized oral phase of swallowing with pharyngeal pooling. Lingual function with weakness and decreased coordination impacts articulation of speech and swallowing. * Initially on nectar-thick liquids and a dysphagia 1 diet. Advanced to dysphagia 2 diet and thin liquids, 12/15/2018. 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 * Initial functional independence measure is 61 on 12/13/2018 improved to 90 as of 12/20/2018. Independent with bed mobility and ambulating with front wheeled walker or a 4 wheeled walker. Walked greater than 150 ft, independent with 4 wheeled walker. Needs standby assist for path finding and for walking outdoors. Climbed and descended 12 stairs. Standby assist for car transfer. Scored 21/56 on the Cisneros balance test. Modified independent for ADLs. Has shoulder and hand weakness. Benefitting from an bilateral AFOs for foot drop, which has been a chronic problem, likely due to spinal issues with history of lumbar surgery. Advanced to independent in his room. * Continue treatment per Physical Therapy and Occupational Therapy. Risk for dehydration with need for thickened liquids. * BMP 12/12 with BUN over creatinine greater than 20-1. Orthostatic by pulse on 12/13/2018. * Continue efforts at hydration. Cognitive impairment. Scored 19/30 on the [place] cognitive assessment. * MoCA score increased to 24/30 on 12/19/2018. Continues with deficits to executive function, attention and problem-solving. Will likely need assist with financial and medication management. * Continue treatment per speech and language pathology. Constipation. Responding to laxatives. Usual habit is every several days. Hypertension. He was on metoprolol alone prior to admission and now has the addition of amlodipine. * Also with orthostasis. He denies lightheadedness. Orthostatic blood pressure much improved, 12/17/2018. * Diastolic dysfunction and mild LVH on echo in the hospital. * Increased amlodipine form 2.5 mg to 5 mg QD starting 12/13/2018, and decreased metoprolol ER from 50 mg QD to 25 mg QD to allow more heart rate reactivity to orthostasis. Urinary incontinence. Per report from [facility], he was continent of urine, but he had an incontinent episode when he arrived on the inpatient rehabilitation unit. * Negligible PVR. * No subsequent episodes of incontinence. Unclear indication for aspirin. Discontinue starting 12/14/2018. Prophylaxis. He has had limited mobility which, combined with his age, increases his risk for deep venous thrombosis. * Therapies report much improved mobility. Discontinue enoxaparin starting 12/13. DISPOSITION: Attended staffing, 12/20/2018, 15 min. Discussed with case management, nursing, dietitian, PT, OT, ZOOLOGY TEACHER. Lives alone, neighbors are helpful , MD OCAMPO is a friend of his brother who lives in [place]. Eventual move to [place] is possible. Functional goal is independence or modified independence , and least restrictive diet. Discharge date set for 12/22/2018. Followup. He will see Neurology, Dr. Gallegos, after his discharge. He will also need to establish with a primary care provider. 12/20/18 11:25 12/21/18 11:04 Subjective: No complaints. Feels ready to go home tomorrow. No bowel movement for several days but he does not feel uncomfortable. Objective: Vital Signs Temp Pulse Resp BP Pulse Ox 36.1 C 84 16 109/77 94 12/21/18 08:00 12/21/18 09:13 12/21/18 08:00 12/21/18 09:13 12/21/18 08:00 Laboratory Results 12/12/18 15:50 12/12/18 15:50 12/20/18 12/21/18 12/22/18 05:59 05:59 05:59 Intake Total 1030 2640 Output Total 250 Balance 780 2640 Physical Exam - Physical Exam General Appearance: WD/WN, alert, no apparent distress Respiratory: No respiratory distress, No accessory muscle use Skin: normal color, warm/dry Neuro/Psych: alert, normal mood/affect, oriented x 3, speech abnormalities ( Dysarthric) ICD10 Worksheet Patient Problems: Problems Problem Status Onset Aphasic disturbance Acute Weakness Acute
--- NOTE | 2018-12-21 11:21 | PDOREHIP ---
Admission [facility] - Admission - 3 Day Assessment Period Admission Date/Day 1: 12/11/18 Day 2: 12/12/18 Day 3: 12/13/18 - Active Diagnoses Comorbidities and Co-existing Conditions at Admission: 20305. None of the Above Discharge [facility] - Discharge - 3 Day Assessment Period 2 Days Prior to Anticipated Discharge Date: 12/20/18 1 Day Prior to Anticipated Discharge Date: 12/21/18 Anticipated Discharge Date: 12/22/18 - Discharge Skin Conditions Unhealed Pressure Ulcer (1 or more/Stage 1 or >)-Discharge: 0. No # Stage 1 Pressure Ulcers-Discharge: 0 # Stage 2 Pressure Ulcers-Discharge: 0 # of These Stage 2 Pressure Ulcers Present on Admission: 0 # Stage 3 Pressure Ulcers-Discharge: 0 # of These Stage 3 Pressure Ulcers Present on Admission: 0 # Stage 4 Pressure Ulcers-Discharge: 0 # of These Stage 4 Pressure Ulcers Present on Admission: 0 # Unstageable Pressure Ulcers (Non-remove Dress)-Discharge: 0 # These Unstageable Pressure Ulcers (NRD)-Present on Admit: 0 # Unstageable Pressure Ulcers (Slough/Eschar)-Discharge: 0 # These Unstageable Pressure Ulcers(Slough) Present on Admit: 0 # Unstageable Pressure Ulcers (Deep Tissue Injury)-Discharge: 0 # These Unstageable Pressure Ulcers (DTI) Present on Admit: 0
[2018-12-21] MEDS: SENNOSIDES 1 TAB PO SCH (20:30)
[2018-12-22 08:31] VITALS: BP 120/79
[2018-12-22] MEDS: POLYETHYLENE GLYCOL 3350 17 GM PKT PO SCH (09:13)
[2018-12-22] MEDS: amLODIPine BESYLATE 5 MG TAB PO SCH (09:13)
[2018-12-22] MEDS: METOPROLOL SUCCINATE XR 25 MG TAB PO SCH (09:13)
--- NOTE | 2018-12-22 13:54 | GDS ---
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 OTHER DISCHARGE DIAGNOSIS: Hypertension. COMPLICATIONS: There were none. CONSULTATIONS: There were none. PROCEDURES: There were none. HISTORY AND HOSPITAL COURSE: This patient was admitted from [facility]. He had presented there on 12/03/2018 with dysarthria and tachycardia. He was evaluated for a stroke, but head CT and CT angiogram were negative. Brain MRI showed minimal nonspecific periventricular and subcortical white matter disease in the frontal and parietal lobes. He was evaluated for possible C-spine disease causing his weakness. The neurosurgery financial reporting consultant advised that this was not the case, though he had moderate to severe degenerative disk disease at C4-5 through C6-7. Out of concern for possible myasthenia gravis, he was treated with high-dose IV corticosteroids. He had some improvement. He continued to have significant dysphagia and was on a pureed diet with nectar-thick liquids. He did well in rehabilitation. Initially, he was needing assistance with most activities of daily living and with mobility. He progressed to being independent in his room and on the unit prior to his discharge. He had bilateral footdrop, likely due to a history of lumbar spinal disease and spinal surgery. This greatly improved with ankle-foot orthoses. He was independent with bed mobility and transfers, and ambulated 150 feet or greater with a 4- wheeled walker independently indoors and outdoors. He climbed and descended 12 stairs with 1 rail, cues, and supervision for safety. He was independent with activities of daily living. He was seen by Speech and Language Pathology and advanced from a dysphagia 1 diet with nectar-thick liquids to a dysphagia 3 diet with thin liquids. He was noted to have cognitive impairment. He scored 19/30 initially on the [place] Cognitive Assessment. He was retested on 01/08/2019 and scored 24/30, which was still in the significantly cognitively impaired range. He had deficits to executive function, attention, and problem-solving. He will need assistance with financial and medication management. He continued to have dysarthria, which was moderate, but it had improved during his stay. He had a history of hypertension and was taking metoprolol prior to his hospitalization. Amlodipine was added during his hospitalization. On the rehabilitation unit, he was noted to have orthostasis, which improved with improved oral intake. Metoprolol was decreased from 50 mg to 25 mg daily, and amlodipine was increased from 2.5 mg to 5 mg daily in order to allow more heart rate response to his orthostasis. He was taking aspirin prior to his hospitalization. On review of his medical records, there was no clear indication to continue aspirin, so it was discontinued. DISCHARGE PLAN AND DISPOSITION: He is returning home alone, but will have assistance from neighbors. DISCHARGE CONDITION: Good. DIET: Regular with dysphagia 3 texture and thin liquids. ACTIVITY: Ad julio, but he will need supervision or assistance with medication and senior financial consultant. ALLERGIES: There are no new drug allergies. He continues to have the listed allergy to penicillin. MEDICATIONS ON DISCHARGE: 1. Acetaminophen 650 mg p.o. q.4 h. p.r.n. 2. Amlodipine 2.5 mg p.o. daily. 3. Metoprolol succinate XR 25 mg p.o. daily. 4. Polyethylene glycol 17 g p.o. daily. 5. Senna 1 tablet p.o. at bedtime. ISSUES TO BE ADDRESSED AT FOLLOWUP: 1. Mobility and activities of daily living. He will continue to have home PT and OT, and can follow up with primary care regarding his progress. 2. Dysphagia and dysarthria. He will continue with home speech and language pathology, and can follow up with his primary care provider. 3. Hypertension, with medication changes during his stay. He can follow up with Primary Care. 4. Cognitive impairment has been improving. Continue speech and language pathology at home, and follow up with Primary Care. 5. Neurodegenerative disorder of unknown etiology. Labs for myasthenia gravis from the hospital were negative. He will follow up with neurologist, Dr. Bolivar Gallegos. /[id number]/MODL [id number]
== END 2018-12-22 09:53 | disposition home health service (06) | DRG 92 ==
LOC: BREH 16:03 → F3E 12-19 11:12
PROVIDERS: ADMIT Internal Medicine Hospice and Palliative Medicine; ATTEND Internal Medicine Hospice and Palliative Medicine
PROC: F07M3ZZ Motor Function Treatment of Musculoskeletal System - Whole Body (ICD-10-PCS; principal; 2018-12-11)
PROC: F0636ZZ Communicative/Cognitive Integration Skills Treatment of Neurological System - Whole Body (ICD-10-PCS; principal; 2018-12-11)
PROC: F08Z7ZZ Vocational Activities and Functional Community or Work Reintegration Skills Treatment (ICD-10-PCS; principal; 2018-12-11)
DX: R47.1 Dysarthria and anarthria (principal); R13.10 Dysphagia, unspecified; M50.321 Other cervical disc degeneration at C4-C5 level; M50.322 Other cervical disc degeneration at C5-C6 level; M48.02 Spinal stenosis, cervical region; G81.91 Hemiplegia, unspecified affecting right dominant side; I10 Essential (primary) hypertension; M51.36 Other intervertebral disc degeneration, lumbar region; R32 Unspecified urinary incontinence
CPT/HCPCS: 92507-GN; 92523-GN; 92526-GN; 92610-GN; 97110-GO; 97110-GP; 97112-GP; 97116-GP; 97162-GP; 97166-GO; 97530-GO; 97530-GP; 97535-GO; 97537-GO; 97760-GP; G0515-GO; J1650

== ENCOUNTER → 2019-01-16 | Outpatient (CLI) | payer OTHER | LOC: BMCIMAGING 08:29 | PROVIDERS: ATTEND Physician Assistant | DX: B18.2 Chronic viral hepatitis C (principal) ==